=== PATIENT | female | born 1960 | race Caucasian/White ===

== ENCOUNTER 2017-10-13 23:01 | Emergency (ER) | payer OTHER ==
[~2017-10-13] VITALS: Ht 165.1 cm; Wt 45.4 kg
[~2017-10-13 23:01] MED LIST: ADVAIR 250-501 EACH INH; CALCIUM 600 +1 EACH PO; CELEXA40 MG PO; CLARITIN10 MG PO; DALIRESP500 MCG PO; DOCUSATE SODIU100 MG PO; DOXYCYCLINE 10100 MG PO; FLONASE 0.05%50 MCG NASAL; FOSAMAX 70 MG T70 MG PO; GLUCOPHAGE500 MG PO; IRON; LEVAQUIN 500 M500 M1 PO; LEVAQUIN 500 M500 M2 PO; LOPRESSOR50 PO; LORAZEPAM 0.50.5 MG PO; MECLIZINE HCL12.5 MG PO; MECLIZINE HCL25 M1; MIRALAX255 GM PO; MONTELUKAST SOD10 MG PO; NAPROSYN500 MG PO; NASACORT10.8 ML; NEBULIZER TREATMENT; OMEPRAZOLE 20 M20 MG PO; PAIN & FEVER325 MG PO; PERCOCET 5-3251 EACH PO; PREDNISONE 10 M10 M1; PREDNISONE 10 M10 M1 PO; PREDNISONE 10 M10 MG PO; PREDNISONE 20 M20 M1 PO; PROMETHAZINE HC25 M1 PO; PROMETHAZINE-D120 ML PO; SLOW FE 160MG160 MG PO; SPIRIVA INH; TESSALON PERLE100 MG PO; TOBRAMYCIN SULFA5 ML OPHTHALMIC; VERAPAMIL HCL180 M4 PO; ZOCOR 20 MG TAB20 M1 PO
[2017-10-13] MEDS ORDERED: SPIRIVA18 MCG INH (23:11)
[2017-10-13] MEDS ORDERED: MAGOX 400400 MG PO (23:12)
[2017-10-13] MEDS ORDERED: EFFEXOR XR75 MG PO (23:12)
[2017-10-13] MEDS ORDERED: NEURONTIN 300M300 M2 PO (23:12)
[2017-10-13] MEDS ORDERED: NASACORT10.8 ML NASAL (23:12)
[2017-10-13 23:47] LABS: ABSOLUTE BASOPHILS 0.1 thou/uL (0.0-0.2); ABSOLUTE EOSINOPHILS 0.1 thou/uL (0.0-0.7); ABSOLUTE LYMPHOCYTES 3.3 thou/uL (0.8-5.3); ABSOLUTE MONOCYTES 0.9 thou/uL (0.0-1.2); ABSOLUTE NEUTROPHILS 7.3 thou/uL (1.6-8.1); BASOPHILS 0.7 %; EOSINOPHILS 0.7 %; HEMATOCRIT 35.4 % (37.0-47.0); HEMOGLOBIN 11.6 gm/dL (12.0-15.0); LYMPHOCYTES 28.3 %; MCH 30.2 pg (26.0-34.0); MCHC 32.7 g/dL (28.0-37.0); MCV 92.5 fL (80.0-100.0); MPV 6.9 fl. (7.2-11.1); NUCLEATED RBCS 0 /100WBC; PLATELET COUNT* 519 thou/uL (150-400); POLYS 62.3 %; RBC 3.83 mil/uL (4.20-5.00); RDW-CV 14.5 % (10.5-14.5); WBC 11.7 thou/uL (4.0-11.0)
[2017-10-13 23:50] LABS: ANION GAP 6 mmol/L (7-16); BUN 7 mg/dL (7-18); CHLORIDE 98 mmol/L (98-107); CO2 36 mmol/L (21-32); CREATININE 0.7 mg/dL (0.6-1.3); GLUCOSE 108 mg/dL (70-99); POTASSIUM 3.3 mmol/L (3.5-5.1); SODIUM 140 mmol/L (136-145)
[2017-10-13 23:57] LABS: ALBUMIN 3.9 g/dL (3.4-5.0); ALKALINE PHOSPHATASE 78 U/L (46-116); SGOT 13 U/L (15-37); SGPT 21 U/L (30-65); TOTAL BILIRUBIN 0.3 mg/dL (<0.1-1.0); TROPONIN-I LEVEL <0.06 ng/mL (<0.06)
[2017-10-14 00:05] LABS: URINE BILIRUBIN NEGATIVE (Negative); URINE BLOOD TRACE (Negative); URINE CLARITY CLEAR; URINE COLOR YELLOW; URINE GLUCOSE-RANDOM NEGATIVE (Negative); URINE KETONES NEGATIVE (Negative); URINE LEUKOCYTES-REFLEX 1+ (Negative); URINE NITRITE-REFLEX NEGATIVE (Negative); URINE PROTEIN TRACE (Negative); URINE UROBILINOGEN 0.2 E.U./dl (0.2-1.0)
[2017-10-14 00:49] LABS: CASTS None Seen /LPF (None Seen); MUCUS 4-6 Moderate strn/LPF (None Seen); SQUAMOUS >10 Many /LPF (0-3)
[2017-10-14 00:50] LABS: URINE WBC-REFLEX 0-5 Rare /HPF (0-5)
[2017-10-14] MEDS ORDERED: BACTRIM DS TAB1 EACH PO (00:50)
[2017-10-14 00:51] LABS: CRYSTALS None Seen /LPF (None Seen); URINE RBC 0-2 Rare /HPF (0-2)
[2017-10-14 01:07] VITALS: BP 144/80
--- NOTE | 2017-10-15 09:41 | EKG ---
[place] [address] ELECTROCARDIOGRAM REPORT Name: ROZ SOMMER Room: [facility]#: [id number] Admission: 10/13/17 Attend Phys: Discharge: 10/14/17 Date of : 60 Report #: [id number] THIS REPORT FOR: //name// [facility] ED Test Date: 2017-10-13 Test Time: 23:05:55 Pat Name: ROZ SOMMER Department: Room: Gender: F Feed Research Aide: RENETTA : 1960 Requested By: Cheyanne Bautista Order Number: [id number] MD: Brett Louis Measurements Intervals [place] Rate: 134 P: 91 CT: 73 QRS: 84 QRSD: 88 T: -36 QT: 363 QTc: 542 Interpretive Statements Sinus tachycardia Borderline repolarization abnormality Prolonged QT interval Artifact in lead(s) II,III,aVR,aVL,aVF,V1,V2,V3,V4,V5,V6 Compared to ECG 10/15/2014 20:06:42 rate slowed Electronically Signed On 10-15-2017 9:41:19 CDT by Brett Louis [email or web address] <ELECTRONICALLY SIGNED> By: Brett Louis MD, FAC 10/15/17 0941 [id number] [id number] Brett Louis MD, [facility] /EPI
== END 2017-10-14 01:08 | disposition home or self-care (01) ==
LOC: M.ERS 23:01
PROVIDERS: Nurse Practitioner Family
DX: K44.9 Diaphragmatic hernia without obstruction or gangrene (principal); N30.90 Cystitis, unspecified without hematuria; R07.9 Chest pain, unspecified; J44.9 Chronic obstructive pulmonary disease, unspecified; G51.0 Bell's palsy; E78.00 Pure hypercholesterolemia, unspecified; F17.210 Nicotine dependence, cigarettes, uncomplicated; Z98.890 Other specified postprocedural states; Z88.6 Allergy status to analgesic agent; Z88.0 Allergy status to penicillin

== ENCOUNTER → 2018-01-13 | Outpatient (CLI) | payer OTHER ==
[~2018-01-13] MED LIST changes: +BACTRIM DS TAB1 EACH PO; +EFFEXOR XR75 MG PO; +MAGOX 400400 MG PO; +NASACORT10.8 ML NASAL; +NEURONTIN 300M300 M2 PO; +SPIRIVA18 MCG INH
== END ==
LOC: M.LAB 11:58
DX: R00.2 Palpitations (principal); E78.00 Pure hypercholesterolemia, unspecified; J44.9 Chronic obstructive pulmonary disease, unspecified

== ENCOUNTER 2019-03-21 13:52 | Inpatient (IN) | payer OTHER ==
[~2019-03-21] VITALS: Ht 152.4 cm; Wt 48.1 kg
[2019-03-21] VITALS (9 sets, daily range): BP systolic 121–152; BP diastolic 67–85
[~2019-03-21 13:52] MED LIST changes: +CALCIUM 600 +1 EAC2 PO; -CALCIUM 600 +1 EACH PO; +OMEPRAZOLE 20 M20 M1 PO; -OMEPRAZOLE 20 M20 MG PO
[2019-03-21] MEDS ORDERED: ASA81BEC PO (14:14)
[2019-03-21 14:45] LABS: ABSOLUTE BASOPHILS 0.1 thou/uL (0.0-0.2); ABSOLUTE EOSINOPHILS 0.1 thou/uL (0.0-0.7); ABSOLUTE LYMPHOCYTES 1.2 thou/uL (0.8-5.3); ABSOLUTE MONOCYTES 0.6 thou/uL (0.0-1.2); ABSOLUTE NEUTROPHILS 8.2 thou/uL (1.6-8.1); BASOPHILS 0.6 %; EOSINOPHILS 1.1 %; HEMATOCRIT 24.7 % (37.0-47.0); HEMOGLOBIN 7.9 gm/dL (12.0-15.0); LYMPHOCYTES 11.4 %; MCHC 31.9 g/dL (28.0-37.0); MCV 87.9 fL (80.0-100.0); MONOCYTES 6.4 %; MPV 6.4 fl. (7.2-11.1); NUCLEATED RBCS 0 /100WBC; PLATELET COUNT* 387 thou/uL (150-400); POLYS 80.5 %; RBC 2.81 mil/uL (4.20-5.00); RDW-CV 15.2 % (10.5-14.5); WBC 10.1 thou/uL (4.0-11.0)
[2019-03-21 14:52] LABS: BE 22.7 mmol/L (-2 to +3)
[2019-03-21 14:54] LABS: pH 7.271 (7.340-7.450)
[2019-03-21 14:55] LABS: PO2 246.3 mmHg (75.0-100.0)
[2019-03-21 14:55] LABS: BUN 12 mg/dL (7-18); CALCIUM 9.6 mg/dL (8.5-10.1); CHLORIDE 96 mmol/L (98-107); CREATININE 0.5 mg/dL (0.6-1.3); GLUCOSE 109 mg/dL (70-99); POTASSIUM 3.7 mmol/L (3.5-5.1); SODIUM 140 mmol/L (136-145)
[2019-03-21 14:59] LABS: APTT 27.5 Seconds (25.0-31.3); PROTIME 10.7 Seconds (9.20-11.50)
[2019-03-21 15:00] LABS: ALBUMIN 2.9 g/dL (3.4-5.0); ALKALINE PHOSPHATASE 75 U/L (46-116); MAGNESIUM 1.5 mg/dL (1.8-2.4); SGOT 7 U/L (15-37); SGPT 14 U/L (30-65); TOTAL BILIRUBIN 0.1 mg/dL (<0.1-1.0); TOTAL PROTEIN 7.6 g/dL (6.4-8.2)
[2019-03-21 15:06] LABS: CO2 > 45 mmol/L (21-32)
[2019-03-21 16:12] LABS: BE 18.5 mmol/L (-2 to +3); PO2 88.6 mmHg (75.0-100.0); pH 7.315 (7.340-7.450)
[2019-03-21 16:15] LABS: PCO2 96.5 mmHg (35.0-45.0)
[2019-03-21 16:51] LABS: URINE BILIRUBIN NEGATIVE (Negative); URINE BLOOD NEGATIVE (Negative); URINE CLARITY CLEAR; URINE COLOR YELLOW; URINE GLUCOSE-RANDOM NEGATIVE (Negative); URINE KETONES NEGATIVE (Negative); URINE LEUKOCYTES-REFLEX NEGATIVE (Negative); URINE NITRITE-REFLEX NEGATIVE (Negative); URINE PROTEIN TRACE (Negative); URINE SPECIFIC GRAVITY 1.025 (1.005-1.030); URINE UROBILINOGEN 0.2 E.U./dl (0.2-1.0)
--- NOTE | 2019-03-21 20:18 | NUR ---
PT RECEIVED FROM ER AT 1730, A&O X4. ST ON THE MONITOR, SATTING LOW 90s IN 3L NC. GETS UP TO THE BSC, STB. HAD HER BM. ATE HER DINNER. BIPAP ORDERS RECEIVED. FAMILY AT THE BEDSIDE. ADMISSION PROCESS COMPLETED.
[2019-03-21 20:53] LABS: INFLUENZA A ANTIGEN Negative (Negative); INFLUENZA B ANTIGEN Negative (Negative)
[2019-03-22] VITALS (13 sets, daily range): BP systolic 116–144; BP diastolic 68–87
[2019-03-22 04:30] LABS: HEMATOCRIT 27.5 % (37.0-47.0); HEMOGLOBIN 8.7 gm/dL (12.0-15.0); MCH 27.7 pg (26.0-34.0); MCHC 31.6 g/dL (28.0-37.0); MCV 87.5 fL (80.0-100.0); MPV 6.7 fl. (7.2-11.1); RBC 3.14 mil/uL (4.20-5.00); RDW-CV 15.1 % (10.5-14.5); WBC 7.5 thou/uL (4.0-11.0)
--- NOTE | 2019-03-22 04:39 | NUR ---
ASSUMED CARE AT 1910H, ON NC AT 1.5LPM THEN INCREASED TO 2LPM AND TOLERATED. NO DISTRESS NOTED. RECIEVED PT WITH SINUS TACHYCARDIA BUT AFTER VERAPAMIL PILL GIVEN, PT'S HR DECREASED TO 90'S-105'S. NO COMPLAINS, PT SLEPT INTERMITENTLY. CONTINUE MONITORING AND TOWARD GOALS.
[2019-03-22 04:48] LABS: CALCIUM 9.2 mg/dL (8.5-10.1); CREATININE 0.6 mg/dL (0.6-1.3); MAGNESIUM 1.5 mg/dL (1.8-2.4); POTASSIUM 4.3 mmol/L (3.5-5.1); TOTAL BILIRUBIN 0.2 mg/dL (<0.1-1.0); TOTAL PROTEIN 7.8 g/dL (6.4-8.2)
[2019-03-22 05:58] LABS: BE 13.8 mmol/L (-2 to +3); PO2 75.7 mmHg (75.0-100.0); pH 7.443 (7.340-7.450)
[2019-03-22 05:59] LABS: PCO2 59.5 mmHg (35.0-45.0)
[2019-03-22 09:52] LABS: CALCIUM 9.2 mg/dL (8.5-10.1); CREATININE 0.9 mg/dL (0.6-1.3); POTASSIUM 3.9 mmol/L (3.5-5.1)
--- NOTE | 2019-03-22 14:32 | EKG ---
[place] [address] ELECTROCARDIOGRAM REPORT Name: ROZ SOMMER Room: [address] ADM IN .R.#: [id number] Admission: 03/21/19 Attend Phys: Chemo Alonzo, Discharge: Date of : 60 Report #: [id number] THIS REPORT FOR: //name// [facility] ED Test Date: 2019-03-21 Test Time: 15:06:31 Pat Name: ROZ SOMMER Department: Room: [facility] Gender: F Access Control Specialist: JOE : 1960 Requested By: Danielle Rojas Order Number: [id number] MD: Eulogio Calhoun Measurements Intervals [place] Rate: 129 P: 90 ND: 117 QRS: 90 QRSD: 82 T: 50 QT: 303 QTc: 444 Interpretive Statements Sinus tachycardia Borderline right axis deviation Compared to ECG 10/13/2017 23:05:55 Prolonged QT interval no longer present Electronically Signed On 03-22-2019 14:32:36 WHITE KID BUFFER by Eulogio Calhoun [email or web address] <ELECTRONICALLY SIGNED> By: Eulogio Calhoun MD, FACC 03/22/19 1432 1506 1506 Eulogio Calhoun MD, [facility] /EPI
--- NOTE | 2019-03-22 19:00 | NUR ---
Patient transfered to Tele room 209 in stable condition. Report given.
--- NOTE | 2019-03-22 20:00 | NUR ---
RECEIVED REPORT AND ASSUMED CARE OF PT, ASSESSMENT COMPLETED. PT SOA AT REST, O2 ON AT 3L/NC, HOB ELEVATED. TELEMETRY ON SHOWING ST. WILL CONT TO MONITOR AND ASSIST NEEDED.
[2019-03-23] VITALS (7 sets, daily range): BP systolic 123–146; BP diastolic 64–86
--- NOTE | 2019-03-23 06:58 | NUR ---
SLEPT WELL TONIGHT. ASSESSMENT UNCHANGED. GAIT STEADY TO AND FROM BR WITH OXYGEN ON. SOA WITH ANY ACTIVITY. TELEMETRY SHOWING ST. HS GOALS OF REST AND SAFETY ACHIEVED. HOURLY ROUNDING OBSERVED.
[2019-03-23 08:38] LABS: BE 13.9 mmol/L (-2 to +3); PO2 85.1 mmHg (75.0-100.0); pH 7.441 (7.340-7.450)
[2019-03-23 08:41] LABS: PCO2 60.1 mmHg (35.0-45.0)
--- NOTE | 2019-03-23 13:47 | 2DMMODE ---
[place] [address] 2 D/M-MODE ECHOCARDIOGRAM Name: ROZ SOMMER Room: [address] IN [facility]#: [id number] Admission: 03/21/19 Attend Phys: Chemo Alegria Discharge: Date of : 60 Date of Service: 03/23/19 1347 Report #: [id number] THIS REPORT FOR: //name// APPROVED REPORT Study performed: 03/23/2019 11:05:23 EXAM: Comprehensive 2D, Doppler, and color-flow Echocardiogram Patient Location: In-Patient Room #: [facility] Status: routine BSA: 1.42 HR: 105 bpm BP: 136/64 mmHg Rhythm: NSR Other Information Study Quality: Good Indications Pulmonary Hypertension 2D Dimensions IVSd: 8.56 (7-11mm) LVOT Diam: 20.21 (18-24mm) LVDd: 45.51 mm PWd: 7.98 (7-11mm) Ascending Ao: 25.07 (22-36mm) LVDs: 30.56 (25-40mm) Aortic Root: 29.29 mm Volumes Left Atrial Volume (Systole) LA ESV Index: 31.60 mL/m2 Aortic Valve AoV Peak Rogelio.: 1.70 m/s AO Peak Gr.: 11.59 mmHg LVOT Max P.57 mmHg AO Mean Gr.: 6.38 mmHg LVOT Mean P.08 mmHg LVOT Max V: 1.07 m/s AO V2 VTI: 30.55 cm LVOT Mean V: 0.65 m/s FLACO (VTI): 2.04 cm2 LVOT V1 VTI: 19.41 cm Mitral Valve E/A Ratio: 0.72 MV Decel. Time: 117.33 ms MV E Max Rogelio.: 0.85 m/[place] [address] 2 D/M-MODE ECHOCARDIOGRAM Name: ROZ SOMMER Room: [address] IN [facility]#: [id number] Admission: 03/21/19 Attend Phys: Chemo Alegria Discharge: Date of : 60 Date of Service: 03/23/19 1347 Report #: [id number] MV PHT: 34.03 ms MVA (PHT): 6.47 cm2 TDI E/Lateral E': 6.54 E/Medial E': 7.73 Medial E' Rogelio.: 0.11 m/s Lateral E' Rogelio.: 0.13 m/s Pulmonary Valve PV Peak Rogelio.: 1.04 m/s PV Peak Gr.: 4.34 mmHg Tricuspid Valve RAP Estimate: 5.00 mmHg TR Peak Gr.: 27.11 mmHg RVSP: 32.00 mmHg PA Pressure: 32.00 mmHg Left Ventricle The left ventricle is normal size. There is normal LV segmental wall motion. There is normal left ventricular wall thickness. Left ventricular systolic function is normal. The left ventricular ejection fraction is within the normal range. LVEF is 60-65%. Grade I - abnormal relaxation pattern. Right Ventricle The right ventricle is normal size. The right ventricular systolic function is normal. Atria The left atrium size is normal. The right atrium size is normal. Aortic Valve The aortic valve is normal in structure. No aortic regurgitation is present. There is no aortic valvular stenosis. Mitral Valve The mitral valve is normal in structure. Trace mitral regurgitation. No evidence of mitral valve stenosis. Tricuspid Valve The tricuspid valve is normal in structure. Mild tricuspid regurgitation. Mild pulmonary hypertension. Pulmonic Valve The pulmonary valve is normal in structure. There is no pulmon[place] [address] 2 D/M-MODE ECHOCARDIOGRAM Name: ROZ SOMMER Room: [address] IN [facility]#: [id number] Admission: 03/21/19 Attend Phys: Chemo Alegria Discharge: Date of : 60 Date of Service: 03/23/19 1347 Report #: [id number] Great Vessels The aortic root is normal in size. IVC is normal in size and collapses >50% with inspiration. Pericardium Trace pericardial effusion. <Conclusion> The left ventricle is normal size. There is normal left ventricular wall thickness. Left ventricular systolic function is normal. The left ventricular ejection fraction is within the normal range. LVEF is 60-65%. Grade I - abnormal relaxation pattern. The right ventricle is normal size. The left atrium size is normal. The aortic valve is normal in structure. The mitral valve is normal in structure. The tricuspid valve is normal in structure. Mild tricuspid regurgitation. Mild pulmonary hypertension. IVC is normal in size and collapses >50% with inspiration. Trace pericardial effusion. There is normal LV segmental wall motion. <ELECTRONICALLY SIGNED> By: Mitchell Jurado MD, FACC 03/23/19 1347 46 134 Mitchell Jurado MD, FACC /INF
--- NOTE | 2019-03-23 13:53 | NUR ---
Pt is A&O. Resides at home with her son, dtr and grandkids. Independent. Pt wears home o2 continuous through [employer]. Pt inquired into if she would qualify for an Inogen, RIKKI spoke with Nelly from [employer], faxed facesheet, Nelly to check to see if Pt qualifies. Pt has a walker and cane at home, but states that she doesn't currently use either. Hx of HH. Hx of [place] [facility]. No hx of SNF. Goal is home at id. Following.
--- NOTE | 2019-03-23 18:58 | NUR ---
PT VSS, PT SINUS TACH ON TELE, A&OX4, PT ON NC@3L BASELINE, PT HAS EXTREME SOA ON EXERSION. HOURLY ROUNDING PERFORMED, POSSESSIONS AND CALL LIGHT WITHIN REACH, PT PLANS ON DC 03/24/19
[2019-03-24] VITALS: BP 113/63
[2019-03-24 04:00] VITALS: BP 103/54
[2019-03-24 05:51] LABS: HEMOGLOBIN 8.2 gm/dL (12.0-15.0); MCH 27.3 pg (26.0-34.0); MCHC 31.5 g/dL (28.0-37.0); MCV 86.5 fL (80.0-100.0); MPV 6.6 fl. (7.2-11.1); RBC 3.01 mil/uL (4.20-5.00); RDW-CV 15.5 % (10.5-14.5); WBC 13.6 thou/uL (4.0-11.0)
[2019-03-24 06:11] LABS: CALCIUM 9.3 mg/dL (8.5-10.1); CREATININE 0.7 mg/dL (0.6-1.3); POTASSIUM 4.6 mmol/L (3.5-5.1)
--- NOTE | 2019-03-24 06:55 | NUR ---
PT IS A+O X 4. UP STANDBY- AMBULATES WITH STEADY GAIT TO BATHROOM WITH EXTENSION TUBING ON. NO CONCERNS. CALL LIGHT IN REACH. HOURLY ROUNDING FOR SAFETY.
[2019-03-24 08:42] VITALS: BP 135/77
--- NOTE | 2019-03-24 09:07 | CON ---
[address] [address] CONSULTATION Name: ROSROZ Sutton Room: [address] IN .R.#: [id number] Admission: 03/21/19 Attend Phys: Chemo Alonzo, Discharge: Date of : 60 Report #: [id number] THIS REPORT FOR: //name// CC: Dr. Kevin Alonzo REQUESTING PHYSICIAN: Chemo Alonzo MD REASON FOR CONSULTATION: Acute on chronic respiratory failure, COPD exacerbation. DISCUSSION: The patient is a 59-year-old woman who has a history of very severe COPD. She has been O2, though not steroid dependent. She does have intermittent followup in our office. I currently do not have any of those office notes. She has been having more trouble with her breathing for the last several days. She has had increased cough, her secretions have been fairly clear, but have been thick. She was getting more short of breath, was evaluated in the Emergency Department. She was brought in by EMS. I had increased her FiO2. O2 saturations were relatively low. Was placed on BiPAP as blood gases revealed significant hypercapnia with a pCO2 of greater than 100. Followup blood gases did show improvement, but continued with marked hypercapnia. After admission yesterday, she was able to intermittently come off the BiPAP of p.o. intake. However, she declined sleeping with the BiPAP most of the night. She is on nasal cannula this morning and is feeling much better. She continues to smoke cigarettes. She is vague as to the amount that she smokes. She also uses electronic cigarettes along with marijuana. She is vague as to the amount. At home, she is on the O2 continuously. She does have a nebulizer at home, but has not used it in years. She notes it is stored some place. She does not have a rescue inhaler. Baseline, she does do Advair and Spiriva daily. She notes she has been compliant with that. Her pulmonary history is remarkable for the very severe COPD, though I do not have recent records on her, it does appear that studies done greater than 5-6 years ago were consistent with very severe airways obstruction with an FEV1 of only 0.8 and vital capacity of 2 liters. She did have a pneumothorax and required a right thoracotomy back in 2012, complicated by an infection. Did have a prolonged time on the ventilator at that time, had a tracheostomy tube in place. She cannot recall many of those details, they are not available. She was hospitalized at [facility]. She believes the trach was in for several months. She believes she has had the pneumonia vaccines. [place] [address] CONSULTATION Name: SOMMERROZ Herman Room: [address] IN ..#: [id number] Admission: 03/21/19 Attend Phys: Chemo Alonzo, Discharge: Date of : 60 Report #: [id number] this season. There were no other smokers at home. She is chronically hoarse. Secretions generally are clear. She notes over the last several years, she intermittently may cough up small amount of blood. Has seen ENT in the past, it is not clear when. Apparently because of the hoarseness, they had her do some voice rest. Given her some medications, unknown type. She did not go back for followup. She has ongoing issues with GERD. She has a known hiatal hernia as well. PAST MEDICAL HISTORY: Also remarkable for her severe COPD, prior right thoracotomy for pneumothorax, tracheostomy placement, has had prior MRSA infections, hysterectomy, inguinal hernia repair, Knutson's palsy and hysterectomy. HOME MEDICATIONS: Have been Spiriva HandiHaler daily; Advair unknown strength twice a day, in the past, it was 500/50 one puff b.i.d., medication sheet lists 250/50; lorazepam; Effexor; gabapentin; aspirin; verapamil; calcium with vitamin D; Flonase nasal spray, possibly also Nasacort as well; omeprazole twice a day; metformin; Fosamax weekly. SOCIAL HISTORY: Smoker and electronic cigarette user as noted. Uses marijuana. FAMILY HISTORY: Positive for COPD in multiple family members. REVIEW OF SYSTEMS: Complete ROS was done. Note positives above. Some years ago, she did have a significant weight loss. Has been fairly stable over the last year. Intermittent difficulty swallowing. Chronic hoarseness has been present for several years. Scant intermittent non-massive hemoptysis is noted. No chest pain, no palpitations. No syncopal episodes. Denies any recent issues with nausea and vomiting. No lower extremity edema. No recent skin rashes. No recent fevers, chills or sweats. PHYSICAL EXAMINATION: GENERAL: She is seen in the Intensive Care Unit. She is resting in bed. O2 running via nasal cannula. She is alert, cooperative, speaking in full sentences. She is in no acute distress. HEENT: Head is normocephalic and atraumatic. She looks chronically ill. Mucous membranes a little dry. NECK: Negative for adenopathy and no JVD. Neck muscles well developed. She has a healed tracheostomy scar. HEART: Regular rate, though mildly tachycardic. Grade 1/6 systolic murmur. LUNGS: Reveal breath sounds to be diminished with a prolonged expiratory phase. She has expiratory wheezes heard bilaterally. She has a well-healed right thoracotomy scar. ABDOMEN: Soft. No hepatosplenomegaly is noted. She notes she has some generalized discomfort throughout. No focal tenderness. No guarding. EXTREMITIES: Thin with no edema noted. No clubbing. [place] [address] CONSULTATION Name: ROZ SOMMER Room: [address] IN [facility]#: [id number] Admission: 03/21/19 Attend Phys: Chemo Alonzo, Discharge: Date of : 60 Report #: [id number] wasting noted. LABORATORY AND X-RAY FINDINGS: Her chemistry this morning, her bicarb is 42, down from greater than 45; BUN 12; creatinine 0.6. Calcium 9.2. Transaminases normal. Albumin 3.0. Lactic acid normal. White blood cell count 7500, hemoglobin 8.7, hematocrit of 27.5, platelets 388,000. Influenza screen was negative. Arterial blood gases when she first arrived in the ED yesterday, she had a pH 7.27, a pCO2 121, pO2 of 246. Her bicarb was 54 with a saturation of 98%, that was on 3 liters. Her most recent blood gases done earlier this morning, pH of 7.44, pCO2 of 60, pO2 of 76, bicarb of 40, saturation 93% that was on 2 liters. Blood cultures are pending. A chest x-ray was reviewed. A portable study done. Does show no definite infiltrates. She does have some chronic scarring noted. Large hiatal hernia. IMPRESSION: 1. Acute on chronic respiratory failure. Hypoxic and hypercapnia, clinically improved this morning. 2. Ongoing tobacco abuse. Also, utilizing marijuana and electronic cigarettes. 3. Prior history of respiratory failure requiring long-term ventilation and tracheostomy placement. 4. Anemia. 5. Non-massive intermittent hemoptysis. Source not clear. 6. Hoarseness, it has been chronic sometime. Apparently seeing ENT in the past, so it is not clear whether the may have visualized in her upper airway. 7. Intermittent dysphagia. Could be related to her gastroesophageal reflux disease. 8. Gastroesophageal reflux disease. 9. 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 RECOMMENDATIONS: 1. Okay to transfer out of ICU. 2. Continue bronchodilator regimen. 3. Complete smoking cessation. No cigarettes, marijuana or electronic cigarettes. 4. We would suggest having ENT evaluated once discharged. Those services are not available here in the hospital. Given her long smoking history, would be cramer to have her upper airway reevaluated. 5. Very poor candidate for bronchoscopy, etc. Given the severity of her lung disease, she would not tolerate sedation well. <ELECTRONICALLY SIGNED> By: Ace Mckee MD 03/24/1907 0854 0943Joanne Ellsworth MD /nt
--- NOTE | 2019-03-24 10:21 | NUR ---
ASSUMED CARE OF PT AROUND 0730 THIS AM. REFER TO ASSESSMENT. PT REPORTS FEELING MUCH BETTER THIS AM. ON HOME DOSE OXYGEN OF 3L/NC. TOLERATING DIET. NO OTHER CONCERNS AT THIS TIME. CLWR. WCTM.
[2019-03-24 12:00] VITALS: BP 115/62
[2019-03-24] MEDS ORDERED: MEDROL DOSPAK21 TA1 PO (12:11)
--- NOTE | 2019-03-24 12:20 | NUR ---
Cm spoke with Nelly from [employer], Pt should qualify for an Inogen, Nelly to contact Pt to discuss.
[2019-03-24 12:54] VITALS: BP 115/62
[2019-03-24 13:42] VITALS: BP 115/62
--- NOTE | 2019-03-24 13:57 | NUR ---
Inogen to be delivered to Pt's home today
== END 2019-03-24 13:40 | disposition home or self-care (01) | DRG 189 ==
LOC: M.ERS 13:52 → M.2W 15:16 → M.ICU 15:16 → M.TBA-ER 15:16 → M.ICU 17:31 → M.2W 03-22 18:35
PROVIDERS: Family Medicine; Internal Medicine Pulmonary Disease; Personal Emergency Response Attendant; ADMIT Family Medicine
PROC: 5A09357 Assistance with Respiratory Ventilation, Less than 24 Consecutive Hours, Continuous Positive Airway Pressure (ICD-10-PCS; principal; 2019-03-21)
PROC: 5A09357 Assistance with Respiratory Ventilation, Less than 24 Consecutive Hours, Continuous Positive Airway Pressure (ICD-10-PCS; 2019-03-22)
DX: J96.21 Acute and chronic respiratory failure with hypoxia (principal); E46 Unspecified protein-calorie malnutrition; B71.0 Hymenolepiasis; J96.22 Acute and chronic respiratory failure with hypercapnia; F17.210 Nicotine dependence, cigarettes, uncomplicated; K21.9 Gastro-esophageal reflux disease without esophagitis; G51.0 Bell's palsy; D64.9 Anemia, unspecified; R13.10 Dysphagia, unspecified; R49.0 Dysphonia; J43.9 Emphysema, unspecified; E78.00 Pure hypercholesterolemia, unspecified; F41.9 Anxiety disorder, unspecified; I27.20 Pulmonary hypertension, unspecified; E78.5 Hyperlipidemia, unspecified; R00.0 Tachycardia, unspecified; E83.42 Hypomagnesemia; Z71.6 Tobacco abuse counseling; Z93.0 Tracheostomy status; Z90.710 Acquired absence of both cervix and uterus; Z79.82 Long term (current) use of aspirin; Z79.899 Other long term (current) drug therapy; Z83.6 Family history of other diseases of the respiratory system; Z99.81 Dependence on supplemental oxygen; Z79.84 Long term (current) use of oral hypoglycemic drugs; Z88.6 Allergy status to analgesic agent; Z88.0 Allergy status to penicillin; Z68.20 Body mass index [BMI] 20.0-20.9, adult

== ENCOUNTER 2019-06-30 08:40 | Inpatient (IN) | payer OTHER ==
[~2019-06-30] VITALS: Ht 152.4 cm; Wt 52.0 kg
[~2019-06-30 08:40] MED LIST changes: +ASA81BEC PO; +MEDROL DOSPAK21 TA1 PO
[2019-06-30 08:45] VITALS: BP 127/79
[2019-06-30] MEDS ORDERED: PREDNISONE 10 M10 MG PO (08:55)
[2019-06-30] MEDS ORDERED: WIXELA 250-501 EACH INH (08:56)
[2019-06-30 09:18] LABS: PCO2 120.7 mmHg (35.0-45.0); PO2 158.9 mmHg (75.0-100.0); pH 7.292 (7.340-7.450)
[2019-06-30 09:51] LABS: ABSOLUTE BASOPHILS 0.1 thou/uL (0.0-0.2); ABSOLUTE LYMPHOCYTES 0.7 thou/uL (0.8-5.3); ABSOLUTE NEUTROPHILS 6.5 thou/uL (1.6-8.1); BASOPHILS 1.2 %; HEMATOCRIT 28.3 % (37.0-47.0); HEMOGLOBIN 8.7 gm/dL (12.0-15.0); MCH 25.4 pg (26.0-34.0); MCHC 30.8 g/dL (28.0-37.0); MCV 82.4 fL (80.0-100.0); MONOCYTES 11.6 %; MPV 6.7 fl. (7.2-11.1); NUCLEATED RBCS 0 /100WBC; PLATELET COUNT* 319 thou/uL (150-400); POLYS 78.2 %; RBC 3.43 mil/uL (4.20-5.00); WBC 8.3 thou/uL (4.0-11.0)
[2019-06-30 10:25] LABS: ALBUMIN 3.4 g/dL (3.4-5.0); ALKALINE PHOSPHATASE 92 U/L (46-116); BUN 18 mg/dL (7-18); CREATININE 0.6 mg/dL (0.6-1.3); GLUCOSE 115 mg/dL (70-99); MAGNESIUM 1.7 mg/dL (1.8-2.4); SGPT 13 U/L (30-65); TOTAL BILIRUBIN 0.3 mg/dL (<0.1-1.0); TOTAL PROTEIN 7.4 g/dL (6.4-8.2)
[2019-06-30 10:34] LABS: CHLORIDE 92 mmol/L (98-107); POTASSIUM 4.7 mmol/L (3.5-5.1); SODIUM 141 mmol/L (136-145)
[2019-06-30 10:39] LABS: CO2 > 45 mmol/L (21-32)
[2019-06-30 10:45] LABS: SGOT 12 U/L (15-37)
[2019-06-30 11:36] LABS: URINE CLARITY CLEAR; URINE COLOR YELLOW; URINE GLUCOSE-RANDOM NEGATIVE (Negative); URINE KETONES 2+ (Negative); URINE PROTEIN 2+ (Negative); URINE SPECIFIC GRAVITY >= 1.030 (1.005-1.030)
[2019-06-30 11:37] LABS: URINE BILIRUBIN 1+ (Negative); URINE BLOOD NEGATIVE (Negative); URINE LEUKOCYTES-REFLEX NEGATIVE (Negative); URINE NITRITE-REFLEX NEGATIVE (Negative); URINE UROBILINOGEN 0.2 E.U./dl (0.2-1.0)
[2019-06-30 11:38] LABS: ICTOTEST (BILI CONFIRMATORY) Negative (Negative)
[2019-06-30 11:56] LABS: BACTERIA-REFLEX 1-9 Few /HPF (None Seen); SQUAMOUS 0-3 Few /LPF (0-3); URINE RBC 0-2 Rare /HPF (0-2); URINE WBC-REFLEX 0-5 Rare /HPF (0-5)
[2019-06-30 11:57] LABS: CASTS None Seen /LPF (None Seen); CRYSTALS None Seen /LPF (None Seen); MUCUS >6 Heavy strn/LPF (None Seen)
[2019-06-30 13:43] LABS: BE 15.6 mmol/L (-2 to +3); pH 7.304 (7.340-7.450)
[2019-06-30 13:46] LABS: PCO2 91.7 mmHg (35.0-45.0); PO2 140.8 mmHg (75.0-100.0)
[2019-06-30 18:57] VITALS: BP 138/72
[2019-06-30 18:59] VITALS: BP 126/56
[2019-06-30 20:39] VITALS: BP 132/68
[2019-07-01] VITALS (10 sets, daily range): BP systolic 91–145; BP diastolic 44–83
[2019-07-01 06:10] LABS: HEMOGLOBIN 7.7 gm/dL (12.0-15.0); MCH 25.5 pg (26.0-34.0); MCV 82.5 fL (80.0-100.0); MPV 6.8 fl. (7.2-11.1); RBC 3.03 mil/uL (4.20-5.00); RDW-CV 17.4 % (10.5-14.5); WBC 5.2 thou/uL (4.0-11.0)
[2019-07-01 06:26] LABS: ANION GAP < 0 mmol/L (7-16); BUN 20 mg/dL (7-18); CHLORIDE 96 mmol/L (98-107); CREATININE 0.8 mg/dL (0.6-1.3); GLUCOSE 175 mg/dL (70-99); MAGNESIUM 1.6 mg/dL (1.8-2.4); POTASSIUM 4.7 mmol/L (3.5-5.1); SODIUM 140 mmol/L (136-145)
[2019-07-01 06:48] LABS: CO2 45 mmol/L (21-32)
--- NOTE | 2019-07-01 08:25 | NUR ---
PT ADMITTED TO ROOM 226 JUST BEFORE PROFESSOR OF BIBLICAL STUDIES BEGAN; VSS, A+OX4, DROWSY, 7LO2 HFNC AND BIPAP PRN/ AT NOC. SHE HAS DENIED THE NEED FOR PAIN MEDICATION DURING PROFESSOR OF BIBLICAL STUDIES. PT WORE BIPAP OVERNIGHT FOR APPROXIMATELY 3 HRS; SHE DOES NOT TOLERATE IT WELL. CLEAR LIQUID DIET MAINTAINED. CO2 HAS BEEN HIGH; LAB RESULTS PAGED TO SENSITOMETRIST PULMONOLOGY MD.
[2019-07-01 09:15] LABS: BE 20.8 mmol/L (-2 to +3)
[2019-07-01 09:18] LABS: PCO2 127.2 mmHg (35.0-45.0); PO2 206.5 mmHg (75.0-100.0); pH 7.226 (7.340-7.450)
--- NOTE | 2019-07-01 10:29 | NUR ---
ASSUMED CARE OF PT THIS AM AROUND 0715- EARLY CHILDHOOD ASSISTANT INPLACE ORDERED, TRACING SR/ST- UPON ASSESSMENT PT NOTED TO BE RESTING IN BED- PT A&O X4, FORGETFULL- CONT OF B/B- AX1 WITH TRANSFERS- DIMINISHED LUNG SOUNDS, DYSPNEA NOTED ON EXERTION- VSS, O2 SAT 100% ON 6L VIA HFNC- ABG RESULTED THIS AM WITH RESULTS CALLED TO - O2 DECREASED PER RT R/T TO 3L VIA NC PER ABG RESULTS- ABD SOFT/ROUND/NON-TENDER, BS X4 QUADS- LAST BM REPORTED 06/30/19- IV NOTED TO LEFT AC INTACT AND SL- GOOD PO INTAKE NOTED ON CLEAR LIQUIDS THIS AM- BS MONITORED ORDERED WITH SSI PRESCRIBED-MG NOTED TO BE 1.6 THIS AM AND IS CURRENLTY BEING REPLACED PER PROTOCOL- CALL LIGHT AND PERSONAL BELONGINGS WITH IN REACH- ALL NEEDS MET AT THIS TIME-WCTM
--- NOTE | 2019-07-01 11:30 | NUR ---
ATTEMPTED TO MEET WITH PT, WAS SLEEPING. PT WAS HOPSITALIZED IN NOV, WLIVES WITH SON/DTR AND GRANDKIDS, USES HOME O2 THRU [employer] AND HAS HX OF [facility]. WILL TRY TO MEET WITH PT LATER TODAY TO DISCUSS HOME SITUATION AND DC PLAN
[2019-07-01 13:21] LABS: BE 13.3 mmol/L (-2 to +3); PO2 97.8 mmHg (75.0-100.0)
[2019-07-01 13:23] LABS: PCO2 94.9 mmHg (35.0-45.0); pH 7.265 (7.340-7.450)
--- NOTE | 2019-07-01 13:57 | EKG ---
[place] [address] ELECTROCARDIOGRAM REPORT Name: ROZ SOMMER Room: [address] IN [facility].#: [id number] Admission: 06/30/19 Attend Phys: Ines Valverde, Discharge: Date of : 60 Date of Service: 06/30/19 1042 Report #: [id number] THIS REPORT FOR: cc: Kevin Medrano MD, Matthew W. MD Holkins, John M. MD [facility] ~ THIS REPORT FOR: //name// [facility] ED Test Date: 2019-06-30 Test Time: 10:42:31 Pat Name: ROZ SOMMER Department: Room: [facility] Gender: F Yard Jockey: [facility] : 1960 Requested By: Danielle Rojas Order Number: [id number] MD: Mitchell Jurado Measurements Intervals [place] Rate: 139 P: 77 WV: 63 QRS: 81 QRSD: 76 T: 38 QT: 266 QTc: 405 Interpretive Statements Sinus tachycardia Atrial premature complex Borderline T wave abnormalities Compared to ECG 03/21/2019 15:06:31 Atrial premature complex(es) now present T-wave abnormality now present Electronically Signed On 06-30-2019 12:54:41 SENIOR FINANCE MANAGER by Mitchell Jurado [email or web address] <ELECTRONICALLY SIGNED> By: Mitchell Jurado MD, [facility] 06/30/19 1254 1042 1042 Mitchell Jurado MD, [facility] /EPI
[2019-07-01 18:07] LABS: BE 17.5 mmol/L (-2 to +3); PO2 88.9 mmHg (75.0-100.0); pH 7.426 (7.340-7.450)
[2019-07-01 18:09] LABS: PCO2 68.7 mmHg (35.0-45.0)
--- NOTE | 2019-07-01 20:28 | NUR ---
UNABLE TO DOWNLOAD VITAL SIGNS OFF [employer] MONITOR. HARD COPY PALCED ON CHART.
[2019-07-02] VITALS (24 sets, daily range): BP systolic 119–152; BP diastolic 46–86
[2019-07-02 04:10] LABS: HEMATOCRIT 23.6 % (37.0-47.0); HEMOGLOBIN 7.7 gm/dL (12.0-15.0); MCH 26.5 pg (26.0-34.0); MCHC 32.6 g/dL (28.0-37.0); MCV 81.1 fL (80.0-100.0); MPV 7.1 fl. (7.2-11.1); RBC 2.91 mil/uL (4.20-5.00); RDW-CV 17.5 % (10.5-14.5); WBC 8.4 thou/uL (4.0-11.0)
[2019-07-02 04:28] LABS: ALBUMIN 2.6 g/dL (3.4-5.0); CALCIUM 7.6 mg/dL (8.5-10.1); CREATININE 0.6 mg/dL (0.6-1.3); MAGNESIUM 1.8 mg/dL (1.8-2.4); POTASSIUM 4.3 mmol/L (3.5-5.1); TOTAL BILIRUBIN 0.1 mg/dL (<0.1-1.0)
[2019-07-02 04:44] LABS: BE 13.1 mmol/L (-2 to +3); pH 7.482 (7.340-7.450)
[2019-07-02 04:45] LABS: PCO2 52.2 mmHg (35.0-45.0)
--- NOTE | 2019-07-02 07:24 | NUR ---
RECEIVED REPORT AND ASSUMED CARE. ASSESSMENT COMPLETED CHARTED. POSITION CHANGED EVERY TWO HOURS, HEELS OFF LOADED. ROUNDING COMPLETED AND ALL NEEDS MET.
[2019-07-02 09:20] LABS: BE 9.7 mmol/L (-2 to +3); PO2 95.9 mmHg (75.0-100.0); pH 7.321 (7.340-7.450)
[2019-07-02 09:23] LABS: PCO2 74.3 mmHg (35.0-45.0)
[2019-07-02 10:43] LABS: BE 14.4 mmol/L (-2 to +3); pH 7.315 (7.340-7.450)
[2019-07-02 10:47] LABS: PCO2 86.6 mmHg (35.0-45.0)
--- NOTE | 2019-07-02 11:25 | NUR ---
PATIENT EXTUBATED TO BIPAP. PT REQUESTED TUBE OUT. FAMILY AT BEDSIDE.
--- NOTE | 2019-07-02 13:00 | NUR ---
INT ROUNDS: PT EXTUBATED, ON BIPAP BUT VERY DROWSY. NOT ABLE TO HAVE CONVERSATION WITH HER. NO FAMILY IN ROOM
[2019-07-03] VITALS (22 sets, daily range): BP systolic 105–157; BP diastolic 65–90
[2019-07-03 04:18] LABS: HEMATOCRIT 25.3 % (37.0-47.0); HEMOGLOBIN 8.1 gm/dL (12.0-15.0); MCH 25.8 pg (26.0-34.0); MCV 80.5 fL (80.0-100.0); MPV 6.7 fl. (7.2-11.1); RBC 3.15 mil/uL (4.20-5.00); RDW-CV 17.4 % (10.5-14.5); WBC 10.3 thou/uL (4.0-11.0)
[2019-07-03 04:38] LABS: ALBUMIN 2.8 g/dL (3.4-5.0); CALCIUM 7.8 mg/dL (8.5-10.1); CREATININE 0.5 mg/dL (0.6-1.3); POTASSIUM 3.7 mmol/L (3.5-5.1); TOTAL BILIRUBIN 0.2 mg/dL (<0.1-1.0); TOTAL PROTEIN 6.3 g/dL (6.4-8.2)
--- NOTE | 2019-07-03 06:42 | NUR ---
Pt pleasant, alert and oriented though forgetful at times. Pt wore BIPAP from 2145 to 0500 with a couple of breaks; once at 2250 to have Jello and pudding, and from 0320 to 0350 after requesting new mask for BIPAP. VSS. On 3L O2 per NC when not on BIPAP; O2 sats upper 90s. Requesting that physician will order Miralax for her today. Will continue to monitor.
--- NOTE | 2019-07-03 08:00 | NUR ---
PT IS A/O X4, INTERNET ECOMMERCE SPECIALIST IN PLACE, TRACING SR-ST.PT REMAINS ON 3L O2 NC OR BIPAP WHILE SLEEPING.DOCTOR NOTIFIED OF INCREASED HEART RATE WITH NEW ORDERS RECEIVED.NO C/O PAIN.IV ANTIBIOTICS GIVEN.PT WORKED WITH OT AND GOT UP TO CHAIR.PT DOWNGRADED TO TELE STATUS.CALL LIGHT AND FALL PRECAUTIONS IN PLACE.WILL CONTINUE TO MONITOR FOR DURATION OF SHIFT.
--- NOTE | 2019-07-03 10:15 | NUR ---
INT ROUNDS: MET WITH PT AND DTR KUSH. PT LIVES WITH SON/DIL LINDSEY. SHE IS ABLE TO DO HER OWN ADLS. USES O2 AT 3L, NEB AND TRILOGY AT NIGHT AND WITH NAPS. CONFIMRED EQUIPMENT WITH [employer]. PT HAS BEEN TO [facility] IN PAST DENIES HAVING HH. PT DOES NOT HAVE DPOA, DISCUSSED WITH HER AND GAVE INFO TO HER AND DTR. ENCOURAGED HER TO DISCUSS WITH HER CHILDREN. PT WAS UNSURE ON SAME INTERVENTIONS BUT WILL DISCUSS. PLANS TO RETURN HOME AT ME. ISREAL FOLLOW
--- NOTE | 2019-07-03 18:06 | NUR ---
PT RESTING IN BED WITH CALL LIGHT AND FALL PRECAUTIONS IN PLACE.VSS.PT REMAINS ON 3L O2 NC.WILL CONTINUE TO MONITOR FOR DURATION OF SHIFT.
[2019-07-04] VITALS (15 sets, daily range): BP systolic 115–156; BP diastolic 65–84
[2019-07-04 04:45] LABS: HEMATOCRIT 24.2 % (37.0-47.0); HEMOGLOBIN 7.9 gm/dL (12.0-15.0); MCH 26.3 pg (26.0-34.0); MCHC 32.6 g/dL (28.0-37.0); MCV 80.6 fL (80.0-100.0); MPV 6.9 fl. (7.2-11.1); RDW-CV 17.3 % (10.5-14.5); WBC 10.7 thou/uL (4.0-11.0)
[2019-07-04 05:05] LABS: ALBUMIN 2.7 g/dL (3.4-5.0); CALCIUM 8.7 mg/dL (8.5-10.1); CREATININE 0.6 mg/dL (0.6-1.3); POTASSIUM 3.6 mmol/L (3.5-5.1); TOTAL BILIRUBIN 0.2 mg/dL (<0.1-1.0); TOTAL PROTEIN 6.1 g/dL (6.4-8.2)
--- NOTE | 2019-07-04 07:34 | NUR ---
Pt awake and alert. On BIPAP from 2144 to 439. Reports mask uncomfortable despite readjustments. States she was unable to sleep overnight. Otherwise no complaints. VSS. Will continue to monitor.
--- NOTE | 2019-07-04 10:52 | NUR ---
0730 ASSUMED CARE OF PATIENT. PLEASE SEE DOCUMENTED ASSESSMENT. PT IS TELE STATUS IN THE ICU. PT IS ON 3LPM NASAL CANNULA OXYGEN AT THIS TIME
--- NOTE | 2019-07-04 12:48 | NUR ---
REPORT TO ALBERTO. PATIENT TO MOVE TO ROOM 225
--- NOTE | 2019-07-04 13:23 | NUR ---
transferred to room 225 with all records and belongings
--- NOTE | 2019-07-04 15:26 | NUR ---
RECEIVED REPORT FROM ICU AT 1240. GET SITUATED TO ROOM. I AGREE WITH COOPER TRUCK JUMPER/CHARTING. WILL CONTINUE TO MONITOR.
[2019-07-05] VITALS: BP 129/70
[2019-07-05 04:00] VITALS: BP 114/71
--- NOTE | 2019-07-05 04:44 | NUR ---
ASSUMED PT CARE AT APPROX 1930. PT IS AWAKE AND ORIENTED X4. VSS ON 3L OF O2/NC-NO DESATURATIONS NOTED. PT DENIES PAIN/DISCOMFORT. ASSESSMENT DONE AND CHARTED. PT IS ABLE TO SLEEP MOST OF THE NIGHT. HOURLY ROUNDING DONE FOR PT SAFETY. PT IS ABLE TO REPOSITION SELF. HIGH FALL PRECAUTIONS IN PLACE. CALL LIGHT WITHIN REACH.
[2019-07-05 06:12] LABS: HEMOGLOBIN 7.4 gm/dL (12.0-15.0); MPV 7.1 fl. (7.2-11.1); NUCLEATED RBCS 0 /100WBC
[2019-07-05 06:13] LABS: ABSOLUTE BASOPHILS 0.1 thou/uL (0.0-0.2); ABSOLUTE MONOCYTES 0.9 thou/uL (0.0-1.2); ABSOLUTE NEUTROPHILS 5.3 thou/uL (1.6-8.1); BASOPHILS 0.9 %; EOSINOPHILS 0.1 %; HEMATOCRIT 23.7 % (37.0-47.0); LYMPHOCYTES 23.9 %; MCH 25.6 pg (26.0-34.0); MCHC 31.4 g/dL (28.0-37.0); MCV 81.7 fL (80.0-100.0); MONOCYTES 11.3 %; PLATELET COUNT* 246 thou/uL (150-400); POLYS 63.8 %; RDW-CV 17.4 % (10.5-14.5); WBC 8.4 thou/uL (4.0-11.0)
[2019-07-05 06:23] LABS: ALBUMIN 2.5 g/dL (3.4-5.0); ALKALINE PHOSPHATASE 53 U/L (46-116); BUN 15 mg/dL (7-18); CALCIUM 8.4 mg/dL (8.5-10.1); CHLORIDE 102 mmol/L (98-107); CREATININE 0.3 mg/dL (0.6-1.3); GLUCOSE 86 mg/dL (70-99); POTASSIUM 3.4 mmol/L (3.5-5.1); SGOT 11 U/L (15-37); SGPT 12 U/L (30-65); SODIUM 147 mmol/L (136-145); TOTAL BILIRUBIN 0.2 mg/dL (<0.1-1.0); TOTAL PROTEIN 5.6 g/dL (6.4-8.2)
[2019-07-05 06:32] LABS: CO2 > 45 mmol/L (21-32)
[2019-07-05 08:00] VITALS: BP 119/69
[2019-07-05 11:02] LABS: % SATURATION 7 % (20-39); IRON 24 ug/dL (50-175)
--- NOTE | 2019-07-05 12:51 | NUR ---
ASSUMED PT CARE AT 0800, AOX4, UP SBA, O2 SAT MID 80'S THIS AM. RESOLVED WITH O2 SUPPLEMENT. PT DENIES PAIN. PT ACCU CHECK. PT HAD BM TODAY. LUNG SOUND DIMINISHED. PT IV INTACT, PT ANTIBIOTICS GIVEN ORDERED. LOVETT CATH DRAINING WELL.AM ASSESSMENT CHARTED. HOURLY ROUNDING, CALL LIGHT WITHIN REACH, WILL CONTINUE TO MONITOR.
[2019-07-05 13:50] VITALS: BP 129/72
[2019-07-05 17:59] VITALS: BP 118/68
[2019-07-05 20:00] VITALS: BP 112/71
[2019-07-06] VITALS (7 sets, daily range): BP systolic 108–150; BP diastolic 60–85
--- NOTE | 2019-07-06 04:13 | NUR ---
ASSUMED PT CARE AT APPROX 1930. PT IS AWAKE AND ORIENTED X4. VSS ON 3L OF O2/NC-NO DESATURATIONS NOTED. PT DENIES PAIN/DISCOMFORT. ASSESSMENT DONE AND CHARTED. PT USED THE TRILOGY MOST OF THE NIGHT. HOURLY ROUNDING DONE FOR PT SAFETY. PT IS ABLE TO REPOSITION SELF. FALL PRECAUTIONS IN PLACE. CALL LIGHT WITHIN REACH. WILL CONTINUE TO MONITOR PT.
[2019-07-06 07:45] LABS: ABSOLUTE BASOPHILS 0.1 thou/uL (0.0-0.2); ABSOLUTE LYMPHOCYTES 2.5 thou/uL (0.8-5.3)
[2019-07-06 07:48] LABS: ABSOLUTE MONOCYTES 1.1 thou/uL (0.0-1.2); ABSOLUTE NEUTROPHILS 6.4 thou/uL (1.6-8.1); BASOPHILS 0.6 %; EOSINOPHILS 0.2 %; HEMATOCRIT 21.9 % (37.0-47.0); LYMPHOCYTES 25.1 %; MCH 25.7 pg (26.0-34.0); MCHC 31.6 g/dL (28.0-37.0); MCV 81.3 fL (80.0-100.0); MONOCYTES 10.7 %; MPV 6.9 fl. (7.2-11.1); NUCLEATED RBCS 0 /100WBC; PLATELET COUNT* 265 thou/uL (150-400); POLYS 63.4 %; RBC 2.69 mil/uL (4.20-5.00); RDW-CV 17.5 % (10.5-14.5)
[2019-07-06 07:54] LABS: HEMOGLOBIN 6.9 gm/dL (12.0-15.0)
[2019-07-06 08:15] LABS: ALBUMIN 2.4 g/dL (3.4-5.0); ALKALINE PHOSPHATASE 51 U/L (46-116); BUN 17 mg/dL (7-18); CALCIUM 8.3 mg/dL (8.5-10.1); CHLORIDE 100 mmol/L (98-107); CREATININE 0.5 mg/dL (0.6-1.3); GLUCOSE 89 mg/dL (70-99); POTASSIUM 3.7 mmol/L (3.5-5.1); SGOT 11 U/L (15-37); SGPT 16 U/L (30-65); SODIUM 145 mmol/L (136-145); TOTAL BILIRUBIN 0.2 mg/dL (<0.1-1.0); TOTAL PROTEIN 5.5 g/dL (6.4-8.2)
[2019-07-06 08:21] LABS: CO2 > 45 mmol/L (21-32)
--- NOTE | 2019-07-06 12:22 | NUR ---
ASSUMED CARE OF PT AT 0730. PT RESTING IN BED WAITING FOR BREAKFAST. A&0X4, SLOW TO RESPOND. DENIES ANY PAIN OR SHORTNESS OF BREATH AT THIS TIME. TRACING ST ON THE BROOM WORKER. RATE IN THE 110'S. PT ON 3L NC SAT UPPER 90'S. LOVETT TO DEPENDENT DRAINAGE. PT UP WITH 1 ASSIST TO BSC. CRITICAL HGB THIS AM-6.9. DR NOBLES NOTIFIED. ORDERS RECEIVED TO TRANSFUSE 1 UNIT PRBC. BLOOD TRANSFUSING AT THIS TIME. COLLECTION TECHNICIANTESHA PLACED MIDLINE TO RIGHT UPPER ARM. PERIPHERAL IV INFILTRATED AND DISCONTINUED. PT GOAL FOR TODAY IS HGB TO RISE ABOVE 8 POST TRANSFUSION, PAIN MGMT, INCREASE ACTIVITY AND TITRATE OXYGEN. PULMONARY HERE TO SEE PT. NO NEW ORDERS RECEIVED AT THIS TIME. AM ASSESSMENT CHARTED. MEDICATIONS PER JUL. PT REPOSITIONS SELF. HOURLY ROUNDING OBSERVED. BED IN LOW POSITION. BED ALARM IN PLACE. FALL PRECAUTIONS IN PLACE. CALL LIGHT WITHIN REACH. WILL CONTINUE PLAN OF CARE.
[2019-07-06 15:48] LABS: HEMATOCRIT 27.9 % (37.0-47.0)
[2019-07-06 15:50] LABS: HEMOGLOBIN 9.1 gm/dL (12.0-15.0)
--- NOTE | 2019-07-06 17:08 | NUR ---
NO ACUTE CHANGES THROUGHOUT SHIFT. REFER TO CHARTING. PT PROGRESSING TOWARDS GOALS. PT TOLERATED BLOOD TRANSFUSION WITH NO COMPLICATIONS. HGB POST TRANSFUSION- 9.1. CONTINUES TO BE ON 3L NC SAT UPPER 90'S. PT SLEEPY THIS AFTERNOON- RESTED IN BED. CONTINUES TO TRACE ST ON THE ACCESS CONTROL SPECIALIST-RATE IN THE 110'S. LOVETT TO DEPENDENT DRAINAGE. PT AND OT IN PLACE. PULMONARY DECREASED STEROIDS AND SIGNED OFF. MEDICATIONS PER JUL. PT REPOSITIONS SELF. HOURLY ROUNDING OBSERVED. BED IN LOW POSITION. CALL LIGHT WITHIN REACH. WILL CONTINUE PLAN OF CARE.
--- NOTE | 2019-07-06 17:13 | NUR ---
I have reviewed the documentation by OMAIRA GARCIA from 07/06/19 to 07/06/19 and I concur with it. ELIF RECINOS
[2019-07-07] VITALS (7 sets, daily range): BP systolic 123–146; BP diastolic 69–89
[2019-07-07 04:54] LABS: HEMATOCRIT 27.6 % (37.0-47.0); MCH 27.2 pg (26.0-34.0); MCHC 32.7 g/dL (28.0-37.0); MCV 83.3 fL (80.0-100.0); MPV 6.7 fl. (7.2-11.1); RBC 3.32 mil/uL (4.20-5.00); RDW-CV 17.8 % (10.5-14.5); WBC 11.1 thou/uL (4.0-11.0)
--- NOTE | 2019-07-07 05:24 | NUR ---
PATIENT HAS SLEPT WELL THROUGHOUT THE NIGHT. VSS ON 3L 02 VIA NASAL CANNULA. LUNG SOUNDS ARE COARSE AND WHEEZY. PATIENT IS HAVING PRODUCTIVE COUGH. MEDICATIONS GIVEN ORDERED AND CHARTED. ASSESSMENT CHARTED. RIGHT MIDLINE-SL. LOVETT TO DEPENDENT DRAINAGE WITH ADEQUATE YELLOW URINE OUTPUT. PATIENT INSTRUCTED TO USE CALL LIGHT WHEN NEEDING ASSISTANCE. HOURLY ROUNDS MADE. WILL CONTINUE WITH PLAN OF CARE AND NURSING TO MONITOR.
[2019-07-07 05:42] LABS: BUN 19 mg/dL (7-18); CALCIUM 8.4 mg/dL (8.5-10.1); CHLORIDE 99 mmol/L (98-107); CREATININE 0.5 mg/dL (0.6-1.3); GLUCOSE 118 mg/dL (70-99); MAGNESIUM 1.7 mg/dL (1.8-2.4); POTASSIUM 4.4 mmol/L (3.5-5.1); SODIUM 144 mmol/L (136-145)
[2019-07-07 05:50] LABS: CO2 > 45 mmol/L (21-32)
--- NOTE | 2019-07-07 09:16 | NUR ---
ASSUMED CARE OF PT AT 0730. PT RESTING IN BED WAITING FOR BREAKFAST. A&0X4, DENIES ANY PAIN OR SHORTNESS OF BREATH AT THIS TIME. TRACING SR/ST ON THE CLINICAL INFORMATICS PHYSICIAN. ON 3L NC SAT 96%, COARSE, WHEEZES NOTED. LOVETT TO DEPENDENR DRAINAGE. PT UP WITH 1 ASSIST BSC. PT TO HAVE CXR TODAY, PT TRANSITIONED TO ORAL ANTIBIOTICS. PT GOAL FOR TODAY IS INCREASE ACTIVITY, WORK WITH PT AND OT AND REPLACE MAGNESIUM PER ELECTROLYTE PROTOCOL. AM ASSESSMENT CHARTED. MEDICATIONS PER JUL. PT REPOSITIONS SELF WITH REMINDERS. HOURLY ROUNDING OBSERVED. BED IN LOW POSITION. CALL LIGHT WITHIN REACH. WILL CONTINUE PLAN OF CARE.
--- NOTE | 2019-07-07 12:33 | NUR ---
Nutrition: Pt admitted with COPD exac. Seen for LOS. Pt stated good appetite, no questions about CHO controlled diet. Wt: 119#. BG running high 118-298, on prednisone. Alb 2.4, prealb 16.9. Pt had no questions/concerns. Consider Mild risk. GOALS: continue good meal intake.
--- NOTE | 2019-07-07 16:25 | NUR ---
SPOKE WITH PT AND SON/BETTIE OVER THE PHONE. PT ADMITS TO BEING WEAK, IS AGREEABLE TO CONSIDER SNF. DISCUSSED LIST AND SON WOULD PREFER CLOSE TO HOME BUT NOT A PREFERENCE. LIST OBTAINED FROM INSURANCE WEBSITE, CALL TO [facility] AND [facility], BOTH CALLED THE INSURANCE AND ARE NOT IN NETWORK. CALL TO [facility] AND FAXED REFERRAL. AWAITING CALL BACK. CALL TO [facility] [place], THEY ARE BEHAVIORAL ONLY. CALL TO [facility], THEY WERE UNAVAILABLE. CHECKING ON HH OPTION ALSO.
--- NOTE | 2019-07-07 16:48 | NUR ---
NO ACUTE CHANGES THROUGHOUT SHIFT. REFER TO CHARTING. PT WORKED WITH PT AND OT TODAY-TOLERATED FAIR- HEART RATE NOTED TO BE IN THE 120'S-130'S WITH ACTIVITY. MAGNESIUM BEING REPLACED PER ELECTROLYTE PROTOCOL. PT TOOK A SHOWER WITH NURSING AID ASSIST. PT HAD REPEAT CXR TODAY. REFER TO RESULTS. LOVETT DISCONTINUED THIS AFTERNOON. PT VOIDING WELL WITH NO DIFFICULTIES. PT TO HAVE LABS IN AM. POSSIBLE DISCHARGE TO SNF IN 1-2 DAYS DEPENDING ON STRENGTH PER DR NOBLES. CONTINUES TO BE ON 3L NC SAT 96%. CONTINUES TO TRACE ST ON THE AIR GUN OPERATOR. UP WITH 1 ASSIST TO BSC. MEDICATIONS PER JUL. PT REPOSITIONS SELF WITH REMINDERS. HOURLY ROUNDING OBSERVED. BED IN LOW POSITION. CALL LIGHT WITHIN REACH. WILL CONTINUE PLAN OF CARE.
--- NOTE | 2019-07-07 17:09 | NUR ---
FAXED HOME HEALTH REFERRAL TO [facility]. CONFIRMED WITH BEREKET/KENNEDY THAT [facility] ACCEPTED INSURANCE BUT NEEDED TO REVIEW PLAN AND REFERRAL. WILL FOLLOW UP TOMORROW, 07/08/19 TO SEE IF APPROVED FOR SERVICES IF NEEDED. [phone]; [phone].
[2019-07-08 04:00] VITALS: BP 134/80
--- NOTE | 2019-07-08 05:27 | NUR ---
PATIENT REMAINS ON 3L O2 NC, WHICH IS PATIENT'S BASELINE AT HOME. PATIENT CONTINUES TO HAVE LOOSE COUGH. ENCOURAGED TO EXPECTORATE SPUTUM INTO TISSUE. PATIENT UP TO BEDSIDE COMMODE WITH MINIMAL ASSIST, NO PROBLEMS URINATING. PATIENT DENIES PAIN AND DISCOMFORT. CALL LIGHT WITHIN REACH
[2019-07-08 06:12] LABS: HEMATOCRIT 27.8 % (37.0-47.0); HEMOGLOBIN 9.2 gm/dL (12.0-15.0); MCH 27.5 pg (26.0-34.0); MCHC 32.9 g/dL (28.0-37.0); MCV 83.6 fL (80.0-100.0); MPV 6.4 fl. (7.2-11.1); RBC 3.33 mil/uL (4.20-5.00); WBC 10.3 thou/uL (4.0-11.0)
[2019-07-08 06:29] LABS: BUN 12 mg/dL (7-18); CALCIUM 8.3 mg/dL (8.5-10.1); CHLORIDE 100 mmol/L (98-107); CREATININE 0.5 mg/dL (0.6-1.3); GLUCOSE 94 mg/dL (70-99); POTASSIUM 4.3 mmol/L (3.5-5.1); SODIUM 145 mmol/L (136-145)
[2019-07-08 06:36] LABS: CO2 > 45 mmol/L (21-32)
[2019-07-08 08:00] VITALS: BP 108/67
--- NOTE | 2019-07-08 08:52 | NUR ---
ASSUMED CARE OF PT AT 0730. PT SITTING AT EDGE OF BED WAITING FOR BREAKFAST. A&0X4, DENIES ANY PAIN OR SHORTNESS OF BREATH AT THIS TIME. TRACING ST ON THE DIRECTOR GAME. RATE IN THE 110'S. ON 3L NC SAT 96%. PT HAS LOOSE COUGH. PT UP WITH 1 ASSIST AND BSC. PT HAD BOWEL MOVEMENT TODAY. HGB STABLE THIS AM 9.2. PT GOAL FOR TODAY IS WORK WITH PHYSICAL AND OCCUPATIONAL THERAPY AND DISCHARGE TO SNF. AM ASSESSMENT CHARTED. MEDICATIONS PER JUL. PT REPOSITIONS SELF WITH REMINDERS. HOURLY ROUNDING OBSERVED. BED IN LOW POSITION. CALL LIGHT WITHIN REACH. WILL CONTINUE PLAN OF CARE.
--- NOTE | 2019-07-08 11:25 | NUR ---
MET WITH PT AND SPOKE WITH SON/BETTIE OVER THE PHONE. UNABLE TO FIND SNF IN PTS INSURANCE NETWORK. DISCUSSED HH AND PALLATIVE CARE WITH PT AND SON, IN AGREEMENT. OPTIONS DISCUSSED AND CHOSE [facility]. CALLED AND FAXED DC ORDERS TO [facility]OTH [facility] AND [facility]. EXPLAINED TO PT AND SON THAT PT'S INSURANCE IS VERY LIMITING WITH HER OPTIONS FOR SNF AND HH. SUGGESTED SHE INVESTIGATE OPTIONS AND CALL HER INSURANCE TO DISCUSS. PT TO RETURN HOME WITH FAMILY TODAY.
[2019-07-08] MEDS ORDERED: TYLENOL325 MG PO (11:31)
[2019-07-08] MEDS ORDERED: TOPROL XL25 MG PO (11:36)
[2019-07-08] MEDS ORDERED: ALBUTEROL2.5 MG/31 PO (11:41)
[2019-07-08 12:00] VITALS: BP 123/70
--- NOTE | 2019-07-08 15:45 | NUR ---
DISCHARGE ORDERS RECEIVED. DISCHARGE INSTRUCTIONS, CARE NOTES, SCRIPTS AND FOLLOW UP APPTS GIVEN TO PT. PT COMMUNICATES UNDERSTANDING OF DISCHARGE TEACHING. MIDLINE REMOVED SUCCESSFULLY. PRESSURE DRESSING PLACED. IMPERSONATOR CHARACTER REMOVED. PT DISCHARGED WITH ALL BELONGINGS AND PAPERWORK VIA WHEELCHAIR WITH [employer] TO DAUGHTER'S OWN PERSONAL VEHICLE.
== END 2019-07-08 15:46 | disposition home health service (06) | DRG 208 ==
LOC: M.ERS 08:40 → M.2W 11:27 → M.TBA-ER 11:27 → M.2W 19:02 → M.ICU 07-01 14:24 → M.2W 07-04 13:27
PROVIDERS: Internal Medicine; Internal Medicine Pulmonary Disease; Personal Emergency Response Attendant; ADMIT Internal Medicine
PROC: 5A1935Z Respiratory Ventilation, Less than 24 Consecutive Hours (ICD-10-PCS; principal; 2019-07-01)
PROC: 0BH17EZ Insertion of Endotracheal Airway into Trachea, Via Natural or Artificial Opening (ICD-10-PCS; principal; 2019-07-01)
PROC: 5A09357 Assistance with Respiratory Ventilation, Less than 24 Consecutive Hours, Continuous Positive Airway Pressure (ICD-10-PCS; 2019-07-02)
PROC: 5A09357 Assistance with Respiratory Ventilation, Less than 24 Consecutive Hours, Continuous Positive Airway Pressure (ICD-10-PCS; 2019-07-03)
PROC: 5A09357 Assistance with Respiratory Ventilation, Less than 24 Consecutive Hours, Continuous Positive Airway Pressure (ICD-10-PCS; 2019-07-04)
PROC: 5A09357 Assistance with Respiratory Ventilation, Less than 24 Consecutive Hours, Continuous Positive Airway Pressure (ICD-10-PCS; 2019-07-05)
PROC: 30233N1 Transfusion of Nonautologous Red Blood Cells into Peripheral Vein, Percutaneous Approach (ICD-10-PCS; 2019-07-06)
PROC: 05HY33Z Insertion of Infusion Device into Upper Vein, Percutaneous Approach (ICD-10-PCS; 2019-07-06)
PROC: 5A09357 Assistance with Respiratory Ventilation, Less than 24 Consecutive Hours, Continuous Positive Airway Pressure (ICD-10-PCS; 2019-07-07)
DX: J96.22 Acute and chronic respiratory failure with hypercapnia (principal); E43 Unspecified severe protein-calorie malnutrition; J96.21 Acute and chronic respiratory failure with hypoxia; D64.9 Anemia, unspecified; G51.0 Bell's palsy; F12.90 Cannabis use, unspecified, uncomplicated; F17.210 Nicotine dependence, cigarettes, uncomplicated; E78.5 Hyperlipidemia, unspecified; F41.9 Anxiety disorder, unspecified; J43.9 Emphysema, unspecified; R73.03 Prediabetes; E78.00 Pure hypercholesterolemia, unspecified; R00.0 Tachycardia, unspecified; Z90.710 Acquired absence of both cervix and uterus; Z68.22 Body mass index [BMI] 22.0-22.9, adult; Z79.84 Long term (current) use of oral hypoglycemic drugs; Z79.899 Other long term (current) drug therapy; Z79.82 Long term (current) use of aspirin; Z88.0 Allergy status to penicillin; Z88.8 Allergy status to other drugs, medicaments and biological substances; Z99.81 Dependence on supplemental oxygen

== ENCOUNTER 2019-10-10 18:49 | Inpatient (IN) | payer OTHER ==
[~2019-10-10] VITALS: Ht 152.4 cm; Wt 48.8 kg
[~2019-10-10 18:49] MED LIST changes: +ALBUTEROL2.5 MG/31 PO; +TOPROL XL25 MG PO; +TYLENOL325 MG PO; +WIXELA 250-501 EACH INH
[2019-10-10 18:54] VITALS: BP 150/91
[2019-10-10 19:32] LABS: ABSOLUTE BASOPHILS 0.1 thou/uL (0.0-0.2); ABSOLUTE EOSINOPHILS 0.1 thou/uL (0.0-0.7); ABSOLUTE LYMPHOCYTES 1.6 thou/uL (0.8-5.3); ABSOLUTE MONOCYTES 0.9 thou/uL (0.0-1.2); ABSOLUTE NEUTROPHILS 11.3 thou/uL (1.6-8.1); BASOPHILS 0.4 %; EOSINOPHILS 0.5 %; HEMATOCRIT 33.9 % (37.0-47.0); HEMOGLOBIN 10.9 gm/dL (12.0-15.0); LYMPHOCYTES 11.3 %; MCH 28.5 pg (26.0-34.0); MCHC 32.3 g/dL (28.0-37.0); MCV 88.5 fL (80.0-100.0); MONOCYTES 6.3 %; MPV 6.7 fl. (7.2-11.1); NUCLEATED RBCS 0 /100WBC; PLATELET COUNT* 490 thou/uL (150-400); POLYS 81.5 %; RBC 3.83 mil/uL (4.20-5.00); RDW-CV 15.8 % (10.5-14.5); WBC 13.9 thou/uL (4.0-11.0)
[2019-10-10 19:40] LABS: BUN 11 mg/dL (7-18); CALCIUM 9.1 mg/dL (8.5-10.1); CHLORIDE 94 mmol/L (98-107); CREATININE 0.7 mg/dL (0.6-1.3); GLUCOSE 105 mg/dL (70-99); SODIUM 139 mmol/L (136-145)
[2019-10-10 19:44] LABS: ALBUMIN 3.6 g/dL (3.4-5.0); ALKALINE PHOSPHATASE 76 U/L (46-116); CO2 > 45 mmol/L (21-32); LIPASE 99 U/L (73-393); SGOT 16 U/L (15-37); SGPT 16 U/L (30-65); TOTAL BILIRUBIN 0.2 mg/dL (<0.1-1.0); TOTAL PROTEIN 7.5 g/dL (6.4-8.2)
[2019-10-10 20:08] LABS: APTT 27.3 Seconds (25.0-31.3); PROTIME 10.5 Seconds (9.20-11.50)
[2019-10-10 20:50] LABS: URINE BILIRUBIN NEGATIVE (Negative); URINE BLOOD NEGATIVE (Negative); URINE CLARITY CLEAR; URINE COLOR YELLOW; URINE GLUCOSE-RANDOM NEGATIVE (Negative); URINE KETONES NEGATIVE (Negative); URINE LEUKOCYTES-REFLEX NEGATIVE (Negative); URINE NITRITE-REFLEX NEGATIVE (Negative); URINE PROTEIN NEGATIVE (Negative); URINE SPECIFIC GRAVITY <= 1.005 (1.005-1.030); URINE UROBILINOGEN 0.2 E.U./dl (0.2-1.0)
[2019-10-10 23:10] VITALS: BP 153/86
[2019-10-10 23:40] VITALS: BP 141/74
[2019-10-11] VITALS (12 sets, daily range): BP systolic 109–136; BP diastolic 59–73
--- NOTE | 2019-10-11 05:07 | NUR ---
RECEIVED PT FROM ED AT APPROX 2330. PT IS AWAKE AND ORIENTED X4. PT IS TRACING ST ON THE ACCOUNTING CLERKS SUPERVISOR. ADMISSION ASSESSMENT DONE AND CHARTED. PT DENIES ABDOMINAL PAIN/DISCOMFORT. NO BOWEL MOVEMENT OF THIS TIME. PT IS ADVISED ON THE USE OF CALL LIGHT AND ON ROOM SET UP. FALL PRECAUTIONS IN PLACE. HOURLY ROUNDING DONE FOR PT SAFETY.
[2019-10-11 11:51] LABS: BE 15.7 mmol/L (-2 to +3); PO2 116.7 mmHg (75.0-100.0)
[2019-10-11 11:52] LABS: ABSOLUTE LYMPHOCYTES 1.2 thou/uL (0.8-5.3); ABSOLUTE MONOCYTES 0.6 thou/uL (0.0-1.2); ABSOLUTE NEUTROPHILS 7.7 thou/uL (1.6-8.1); BASOPHILS 0.5 %; EOSINOPHILS 0.2 %; HEMATOCRIT 27.2 % (37.0-47.0); LYMPHOCYTES 12.6 %; MCH 28.6 pg (26.0-34.0); MCHC 31.7 g/dL (28.0-37.0); MCV 90.2 fL (80.0-100.0); MONOCYTES 6.5 %; NUCLEATED RBCS 0 /100WBC; POLYS 80.2 %; RBC 3.01 mil/uL (4.20-5.00); RDW-CV 15.5 % (10.5-14.5); WBC 9.6 thou/uL (4.0-11.0)
[2019-10-11 11:54] LABS: pH 7.182 (7.340-7.450)
[2019-10-11 11:56] LABS: HEMOGLOBIN 8.6 gm/dL (12.0-15.0); PLATELET COUNT* 350 thou/uL (150-400)
[2019-10-11 12:23] LABS: BUN 10 mg/dL (7-18); CALCIUM 8.1 mg/dL (8.5-10.1); CHLORIDE 103 mmol/L (98-107); CREATININE 0.6 mg/dL (0.6-1.3); GLUCOSE 146 mg/dL (70-99); POTASSIUM 4.3 mmol/L (3.5-5.1); SODIUM 144 mmol/L (136-145)
[2019-10-11 12:27] LABS: CO2 > 45 mmol/L (21-32)
[2019-10-11 12:28] LABS: ALBUMIN 2.9 g/dL (3.4-5.0); ALKALINE PHOSPHATASE 66 U/L (46-116); SGOT 10 U/L (15-37); SGPT 15 U/L (30-65); TOTAL BILIRUBIN 0.2 mg/dL (<0.1-1.0); TOTAL PROTEIN 6.2 g/dL (6.4-8.2)
[2019-10-11 14:11] LABS: BE 18.2 mmol/L (-2 to +3)
[2019-10-11 14:14] LABS: PCO2 140.2 mmHg (35.0-45.0); PO2 137.2 mmHg (75.0-100.0); pH 7.177 (7.340-7.450)
--- NOTE | 2019-10-11 15:39 | NUR ---
PT DROWSY BUT ORIENTED, NC@3L MOVED TO BIPAP DUE TO SEVERE ABGs. ST ON TELE, COPD PT WITH PREVIOUS EXACERBATIONS DUE TO SMOKING. UP WITH ONE TO COMMODE, CLEAR LIQUID DIET AND BOWEL PREP FOR PLANNED EGD TO DISCOVER CAUSE OF TARRY STOOLS. PT HAS BLACK RIGHT EYE FROM A FALL AT HOME. HOURLY ROUNDING PERFORMED, POSSESSIONS AND CALL LIGHT WITHIN REACH. TRANSFERRING PATIENT TO ICU FOR CLOSER MONITORING. REPORT GIVEN TO LOUIS LOWERY IN ICU.
[2019-10-11 15:55] LABS: BE 16.5 mmol/L (-2 to +3); PO2 67.5 mmHg (75.0-100.0)
[2019-10-11 15:59] LABS: PCO2 97.3 mmHg (35.0-45.0); pH 7.291 (7.340-7.450)
[2019-10-11 17:21] LABS: BE 12.8 mmol/L (-2 to +3); PO2 78.5 mmHg (75.0-100.0); pH 7.311 (7.340-7.450)
--- NOTE | 2019-10-11 19:26 | NUR ---
PT A&O x4. ECG SHOWS ST. ABG IMPROVING, BIPAP SETTINGS CHANGED PER ORDERS. UP WITH STB. VOIDING PER BSC. LAXATIVES ADMINISTERED ORDERED. ZOFRAN GIVEN ONCE FOR NAUSEA.
[2019-10-12] VITALS (34 sets, daily range): BP systolic 92–147; BP diastolic 50–80
[2019-10-12 03:36] LABS: HEMATOCRIT 25.3 % (37.0-47.0); HEMOGLOBIN 8.1 gm/dL (12.0-15.0); MCH 28.8 pg (26.0-34.0); MCV 89.9 fL (80.0-100.0); MPV 6.9 fl. (7.2-11.1); NUCLEATED RBCS 0 /100WBC; PLATELET COUNT* 358 thou/uL (150-400); RBC 2.81 mil/uL (4.20-5.00); RDW-CV 15.4 % (10.5-14.5); WBC 6.4 thou/uL (4.0-11.0)
[2019-10-12 03:45] LABS: BUN 11 mg/dL (7-18); CALCIUM 8.6 mg/dL (8.5-10.1); CHLORIDE 101 mmol/L (98-107); CREATININE 0.7 mg/dL (0.6-1.3); GLUCOSE 148 mg/dL (70-99); POTASSIUM 4.9 mmol/L (3.5-5.1); SODIUM 142 mmol/L (136-145)
[2019-10-12 03:46] LABS: CO2 > 45 mmol/L (21-32)
[2019-10-12 04:28] LABS: BE 15.6 mmol/L (-2 to +3); PO2 108.2 mmHg (75.0-100.0)
[2019-10-12 04:55] LABS: PCO2 94.5 mmHg (35.0-45.0); pH 7.291 (7.340-7.450)
[2019-10-12 05:53] LABS: ABSOLUTE BASOPHILS 0.1 thou/uL (0.0-0.2); ABSOLUTE LYMPHOCYTES 0.3 thou/uL (0.8-5.3); ABSOLUTE NEUTROPHILS 6.1 thou/uL (1.6-8.1); METAMYELOCYTES 1 %; PLATELET ESTIMATE ADEQUATE
[2019-10-12 05:54] LABS: HYPOCHROMASIA 1+
--- NOTE | 2019-10-12 07:05 | NUR ---
ASSESSMENTS CHARTED. PATIENT WAS TAKEN OFF BIPAP FOR ABOUT 4 HOURS EARLY IN SHIFT. TOLERATED NC WELL. PATIENT PLACED BACK ON BIPAP AROUND 2300 FOR SLEEP. PATIENT WAS DIFFICULT TO AROUSE AFTER 0200. MORNING BMP SHOWED CO2 STILL CRITICALLY HIGH, ABG DRAWN TO CONFIRM RESULTS. CRITICAL RESULTS CALLED TO DR. KUHN. ORDERS RECIEVED. PATIENT HAS BEEN EAISER TO AROUSE SINCE BIPAP SETTING CHANGE. NO BM THIS SHIFT DESPITE BOWEL PREP. PATIENT NOT PRODUCING MUCH URINE THIS SHIFT.
--- NOTE | 2019-10-12 19:49 | NUR ---
I ASSUMED CARE OF THE PATIENT AT 0700. SHE IS ALERT AND ORIENTED X4 AND IS UP WITH STAND BY ASSIST TO THE BEDSIDE COMMODE. BED IS IN THE LOW LOCKED POSITION AND CALL LIGHT IS IN REACH. HOURLY ROUNDING IS COMPLETED AND PATIENT NEEDS ARE MET. PAIN IS DENIED. BIPAP SETTINGS WERE ADJUSTED AND PATIENT HAS BEEN NOTIFIED THAT SHE MAY NEED TO BE INTUBATED TO HAVE HER EGD/COLONOSCOPY. SHE IS USING THE BEDSIDE COMMODE FOR HER BOWEL PREP. SHE WILL BE NPO AT MIDNIGHT AND IS TOLERATING CLEARS NOW. WILL CONTINUE TO MONITOR.
[2019-10-13] VITALS (11 sets, daily range): BP systolic 128–166; BP diastolic 67–93
[2019-10-13 03:55] LABS: ABSOLUTE LYMPHOCYTES 0.5 thou/uL (0.8-5.3); ABSOLUTE MONOCYTES 0.1 thou/uL (0.0-1.2); ABSOLUTE NEUTROPHILS 8.7 thou/uL (1.6-8.1); BASOPHILS 0.4 %; HEMATOCRIT 23.8 % (37.0-47.0); HEMOGLOBIN 7.6 gm/dL (12.0-15.0); LYMPHOCYTES 4.9 %; MCH 28.2 pg (26.0-34.0); MCHC 31.8 g/dL (28.0-37.0); MCV 88.9 fL (80.0-100.0); MONOCYTES 0.7 %; MPV 7.1 fl. (7.2-11.1); NUCLEATED RBCS 0 /100WBC; PLATELET COUNT* 339 thou/uL (150-400); RBC 2.68 mil/uL (4.20-5.00); RDW-CV 15.7 % (10.5-14.5); WBC 9.3 thou/uL (4.0-11.0)
[2019-10-13 04:22] LABS: ALBUMIN 2.8 g/dL (3.4-5.0); ALKALINE PHOSPHATASE 54 U/L (46-116); ANION GAP < 0 mmol/L (7-16); BUN 11 mg/dL (7-18); CALCIUM 8.4 mg/dL (8.5-10.1); CHLORIDE 101 mmol/L (98-107); CO2 44 mmol/L (21-32); CREATININE 0.7 mg/dL (0.6-1.3); GLUCOSE 201 mg/dL (70-99); MAGNESIUM 1.7 mg/dL (1.8-2.4); POTASSIUM 4.4 mmol/L (3.5-5.1); SGOT 9 U/L (15-37); SGPT 13 U/L (30-65); SODIUM 142 mmol/L (136-145); TOTAL BILIRUBIN 0.2 mg/dL (<0.1-1.0); TOTAL PROTEIN 5.8 g/dL (6.4-8.2)
--- NOTE | 2019-10-13 06:29 | NUR ---
PT. PROGRESSING TOWARDS GOALS. UP TO BSC STAND BY ASSIST. VERY SMALL BM THIS SHIFT. BIPAP WORN THROUGHOUT WHILE ASLEEP. NS REMAINS INFUSING AT 100CC/HR. WILL CONTINUE TO MNITOR.
--- NOTE | 2019-10-13 07:00 | CON ---
[address] [address] CONSULTATION Name: ROZ SOMMER Room: [address] IN [facility].#: [id number] Admission: 10/10/19 Attend Phys: Fredy Salamanca MD Discharge: Date of : 60 Report #: [id number] THIS REPORT FOR: //name// cc: Kevin Medrano MD, Matthew W. MD ~ THIS REPORT FOR: //name// CC: Fredy Medrano DATE OF SERVICE: 10/12/2019 INDICATION FOR CONSULTATION: Dfnfg-hu-cowsroq hypercarbic respiratory failure/request for preprocedure evaluation prior to EGD and colonoscopy. HISTORY OF PRESENT ILLNESS: This is a 59-year-old female. The patient has a history of very severe COPD. The patient's FEV1 is noted to be only 0.8 liters. The patient is on long-term oxygen at home. The patient also does get a positive airway pressure device while asleep at home and is an active smoker. The patient is not on long-term prednisone. The patient has a normal left ventricular ejection fraction with mildly elevated pulmonary artery systolic pressure of 45 on her previous echocardiogram. The patient also does take medications for anxiety including a large dose of Ativan at 2 mg twice a day. The patient is now admitted. Yesterday, presentation was with a lower GI bleed. The patient has also had diffuse abdominal pain. The patient is not reported to have had nausea, vomiting or hematemesis. The patient does report shortness of breath. The patient also does have a dry cough as well. The patient is reporting these to be at baseline; however, as is described below. The patient's arterial blood gases are consistent with gilou-nz-oujxghd hypercarbic respiratory failure despite the fact that the patient was on BiPAP overnight. The patient does not report a runny nose or sore throat. There is no fever at this time. The patient does report that a couple of days ago, she recorded a temperature of 99 degrees Fahrenheit at home. She does not have body aches and pains at this time. There is no swelling of lower extremities. There is no calf pain. The patient does at time cough and she is leaning backwards and eating. The patient has had significant issues with anxiety in the past. The patient, however, did not describe anxiety at this time. She has also had significant heartburn in the past. The patient, however, did not describe heartburn at this time either. REVIEW OF SYSTEMS: I performed a detailed review of systems and I asked her over 10 questions for review of systems. The patient's review of systems is negative [place] [address] CONSULTATION Name: SOMMERROZ G Room: [address] IN .R.#: [id number] Admission: 10/10/19 Attend Phys: Fredy Salamanca MD Discharge: Date of : 60 Report #: [id number] PAST MEDICAL HISTORY: Chronic hypoxemic and hypercarbic respiratory failure, the patient's baseline arterial blood gas is showing a significant elevation in pCO2 above 60. The patient also is on long-term oxygen and she states that she uses a CPAP or BiPAP at home. It is not fully defined at this time as to which one of these 2 devices she uses at home. Previous echocardiogram shows a normal left ventricular ejection fraction, pulmonary artery systolic pressure has previously been in the range of 45, which is consistent with mild pulmonary hypertension; gastroesophageal reflux disease; hiatal hernia; anxiety; depression; long-term high dose benzodiazepine use for anxiety. 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 SOCIAL HISTORY: The patient is an active smoker and has had an extensive history of smoking in the past, also uses electronic cigarettes in addition to regular cigarettes, unable to quantify smoking history exactly at this time. The patient, however, states that she still smokes, also uses marijuana. No known history of heavy alcohol use. CURRENT MEDICATIONS: The list is in [facility] reviewed. HOME MEDICATIONS: The list also in [facility] reviewed. FAMILY HISTORY: There are several other family members that also have a history of COPD. PHYSICAL EXAMINATION: GENERAL: She is alert, awake and oriented. She does appear to be emaciated, body mass index is decreased to 20.5. The patient was drinking water as I was entering the room, she was leaning backwards and did cough with sips of water at this time. Overnight, the patient was on BiPAP. The patient had been taken off BiPAP at the time of my examination, was on 2 liters oxygen via nasal cannula. VITAL SIGNS: She is saturating in the mid 90s with a heart rate between 80 and 90 and a blood pressure of 132/75 and a respiratory rate of 15. She did not appear to be in any distress. She is afebrile with a temperature of 36.8 and she has been afebrile since admission. HEENT: Head is normocephalic and atraumatic. NECK: Does not show raised JVP, asymmetry, mass or lymph nodes. CHEST: Symmetrical expansion on inspection and palpation. On auscultation, expressions are prolonged. Breath sounds are significantly decreased, breath sounds are bilaterally equal. I do hear end-expiratory wheezes. HEART: Regular. There is no murmur. ABDOMEN: Soft. There is mild tenderness in the lower abdomen. EXTREMITIES: Lower extremities show no edema, no calf tenderness. SKIN: Dry and intact. NEUROLOGICAL: She did move all extremities [place] [address] CONSULTATION Name: ROZ SOMMER Room: [address] IN [facility]#: [id number] Admission: 10/10/19 Attend Phys: Fredy Salamanca MD Discharge: Date of : 60 Report #: [id number] spontaneously. There is no focal deficit identified. I did order a chest x-ray this morning and then reviewed the report as well as the films myself. There are changes consistent with COPD. There is a small radiopaque density at the right lung base. The patient's CT of the abdomen and pelvis report is reviewed. I reviewed the lower chest only films as well. LABORATORY DATA: The patient's arterial blood gas, which do show ktnqa-gr-mkcmdhz hypercarbic respiratory failure in [facility] reviewed. The patient's CBC, which do show anemia, repeated 3 times since admission reviewed. The patient's chemistries which do show a significant elevation in bicarbonate levels in [facility] reviewed. Coagulation studies and urinalysis in [facility] reviewed. ASSESSMENT AND PLAN: 1. Acute lower gastrointestinal bleed/the procedure evaluation for upper and lower GI endoscopy. The patient at this time does have bfkgf-nz-nmgybvw hypercarbic respiratory failure and therefore, she is significantly higher than average risk for performing any procedure under sedation. I only recommend proceeding to GI scopes tomorrow if the procedures are urgent. If the procedures are urgent, then I recommend endotracheally intubating the patient for the procedures while understanding that endotracheal intubation and mechanical ventilation is significantly higher than average risk for this patient. The patient has had a pneumothorax in the past and there would be a risk of precipitating pneumothorax again if positive airway pressure ventilation with an endotracheal tube is initiated again. Also, due to a very low FEV1, it may be higher than average risk of having difficulty in weaning the patient off the ventilator. If the procedures are not urgent, then we can optimize the patient's respiratory status for these procedures later this week; however, the patient still remains significantly higher than average risk for any procedure under sedation and may still require endotracheal intubation. Therefore, suggest evaluating risks versus benefits of GI scopes accordingly. 2. Mjooc-xq-pqjxeqv hypercarbic respiratory failure. The patient is on a BiPAP while asleep and as needed during the day. At this time, I would go ahead and switch her over to average volume assured pressure support and then follow response. The patient does use either a CPAP or BiPAP at home. In case the patient is on a CPAP, I would recommend in that case considering switching her over to either a BiPAP or Trilogy device upon discharge. 3. Chronic obstructive pulmonary disease exacerbation. There is decreased pH in the patient's arterial blood gases, in addition to elevated pCO2. This points towards an acute component to respiratory failure in addition to chronic. The patient currently is on Solu-Medrol as well as DuoNeb. I agree with this therapy. I very strongly recommend smoking cessation. The patient is a potential candidate for adding ferry terminal supervisor low dose prednisone therapy. 4. Pulmonary infiltrates. There is a small radiopaque density seen at the right lung base. I do identify a small infiltrate at the right lung base on the [address] [address] CONSULTATION Name: ROZ SOMMER Room: [address]#: [id number] Admission: 10/10/19 Attend Phys: Fredy Salamanca MD Discharge: Date of : 60 Report #: [id number] of the abdomen and pelvis performed 2 days ago. This, however, is not significantly different from the patient's previous CT performed in 2014 and therefore may represent chronic changes. Note, the patient has had a pneumothorax on the same side. The patient already is on Levaquin, which would cover the possibility of pneumonia if at all present. I do not feel that any additional therapy is indicated at this time. Note, however, that the patient does have a previous history of methicillin-resistant Staphylococcus aureus colonization. Therefore, in case, there is a significant deterioration of the patient's condition, I would in that case, consider adding MRSA coverage. 5. Anxiety/benzodiazepine use. The patient is on a large dose of Ativan in addition to other medications for anxiety. I do feel that the patient's benzodiazepine use is significantly contributing to her hypercarbic respiratory failure. Clinical correlation is advised if feasible and from a respiratory point of view, reduction in dose of lorazepam may be of benefit. 6. Past medical history of pneumothorax. This does make the patient high risk for performing endotracheal intubation as discussed above. 7. Past medical history of gastroesophageal reflux disease and hiatal hernia. 8. Past medical history of methicillin-resistant Staphylococcus aureus colonization. 9. Deep vein thrombosis prophylaxis. Obviously, we will hold off on subcutaneous Lovenox due to gastrointestinal bleeding until okay with the Gastroenterology service. I recommend sequential compression devices. I also would plan on early ambulation when feasible. The patient is critically ill at this time and remains in dwzju-nw-qachxun hypercarbic respiratory failure. Total time spent providing critical care to this patient today exceeds 40 minutes. <ELECTRONICALLY SIGNED> By: Joey Ortez MD 10/13/19 0700 [id number] Ortez MD /nt
[2019-10-13 07:56] LABS: BE 10.4 mmol/L (-2 to +3); PO2 95.3 mmHg (75.0-100.0); pH 7.388 (7.340-7.450)
[2019-10-13 07:58] LABS: PCO2 62.8 mmHg (35.0-45.0)
--- NOTE | 2019-10-13 08:00 | NUR ---
PT IS A/O X4,VSS,HYDROCHLORIC ACID OPERATOR IN PLACE.NO C/O PAIN.PT DOWNGRADED TO TELE STATUS.GI PHYSICIAN CONTACTED ABOUT EGD/COLON-NO ORDERS TO MOVE FORWARD WITH PROCEDURE AT THIS POINT.CLEAR LIQUID DIET ORDERED.MAG REPLACED.PT INFORMED OF PLAN OF CARE AND COMMUNICATES UNDERSTANDING.PT TO TRANSFER TO ROOM 224.REPORT GIVEN TO NURSE.ALL PERSONAL BELONGINGS PACKED AND TAKEN WITH PT.
--- NOTE | 2019-10-13 11:45 | NUR ---
PT TO ROOM 224 VIA WC. PT INSTRUCTED TO NOT GET OUT OF BED WITHOUT ASSIST. CALL LIGHT WITHIN REACH
--- NOTE | 2019-10-13 12:07 | NUR ---
ICU rounds: Tele status, moving to room 224. Colonoscopy today. Requiring 2-5L of oxygen. CM spoke with Pt's dtr via phone. Pt normally resides at home with her son. Independent. Per dtr, Pt has been smoking "alot," Pt has been rolling her cigarettes from the rashaad tray, family has refused to buy Pt any cigarettes. Pt wears home o2 through [employer]. Current with [facility] palliative care. Hx of [facility]. Following for dispo.
--- NOTE | 2019-10-13 14:51 | NUR ---
Pt is out of network, CM updated Pt's dtr, per Pt is not medically stable to be transferred per pulm. Following.
--- NOTE | 2019-10-13 16:10 | EKG ---
[place] [address] ELECTROCARDIOGRAM REPORT Name: ROZ SOMMER Herman Room: [address] ADM IN .R.#: [id number] Admission: 10/10/19 Attend Phys: Fredy Salamanca, Discharge: Date of : 60 Date of Service: 10/10/191932 Report #: [id number] THIS REPORT FOR: //name// [facility] ED Test Date: 2019-10-10 Test Time: 19:33:39 Pat Name: ROZ SOMMER Department: Room: [facility] Gender: F [employer] Laminator: AMAURI : 1960 Requested By: Matt Jacques Order Number: [id number] MD: Mitchell Jurado Measurements Intervals [place] Rate: 126 P: 79 CO: 108 QRS: 82 QRSD: 85 T: 61 QT: 304 QTc: 441 Interpretive Statements Sinus tachycardia Compared to ECG 06/30/2019 10:42:31 Atrial premature complex(es) no longer present T-wave abnormality no longer present Electronically Signed On 10-13-2019 16:08:24 CDT by Mitchell Jurado [email or web address] <ELECTRONICALLY SIGNED> By: Mitchell Jurado MD, [facility] 10/13/19 1608 32 32 Mitchell Jurado MD, [facility] /EPI
--- NOTE | 2019-10-13 16:36 | NUR ---
PT RESTING IN BED THROUGHOUT SHIFT. TO TELE UNIT THIS AFTERNOON VIA WC. PT TO BSC WITH STEADY GAIT BUT CALLS FOR ASSIST TO BR. NSR. PT ON O2@2L NC. HAS NOT NEEDED BIPAP THIS SHIFT. TOLERATED CLEAR LIQUID DIET. PLAN FOR POSSIBLE COLONOSCOPY LATER THIS WEEK
[2019-10-14] VITALS: BP 142/88
[2019-10-14 04:00] VITALS: BP 152/86
[2019-10-14 05:22] LABS: ABSOLUTE LYMPHOCYTES 0.4 thou/uL (0.8-5.3); ABSOLUTE MONOCYTES 0.2 thou/uL (0.0-1.2); HEMATOCRIT 23.1 % (37.0-47.0); HEMOGLOBIN 7.7 gm/dL (12.0-15.0); LYMPHOCYTES 5.6 %; MCH 29.3 pg (26.0-34.0); MCHC 33.2 g/dL (28.0-37.0); MCV 88.2 fL (80.0-100.0); MONOCYTES 2.3 %; NUCLEATED RBCS 0 /100WBC; PLATELET COUNT* 341 thou/uL (150-400); POLYS 92.1 %; RBC 2.62 mil/uL (4.20-5.00); RDW-CV 15.9 % (10.5-14.5); WBC 7.6 thou/uL (4.0-11.0)
--- NOTE | 2019-10-14 05:38 | NUR ---
PT IS ABLE TO COMMUNICATE HER NEEDS TO STAFF EFFECTIVELY. SHE HAS DENIED THE NEED FOR PAIN MEDICATION UP TO THIS TIME. SHE HAS BEEN WEARING HER BIPAP DURING THIS SHIFT UP TO THIS TIME; SHE HAS SWITCHED TO NASAL CANULA THIS AM SINCE SHE HAS A BLOOD GAS LATER ON NC.
[2019-10-14 05:40] LABS: CALCIUM 8.2 mg/dL (8.5-10.1); CREATININE 0.6 mg/dL (0.6-1.3); MAGNESIUM 1.7 mg/dL (1.8-2.4); POTASSIUM 4.1 mmol/L (3.5-5.1)
[2019-10-14 08:46] LABS: PO2 87.7 mmHg (75.0-100.0); pH 7.425 (7.340-7.450)
[2019-10-14 08:51] LABS: PCO2 55.9 mmHg (35.0-45.0)
--- NOTE | 2019-10-14 11:30 | NUR ---
PT.IS OUT OF NETWORK FOR THIS FACILITY WITH NO OUT OF NETWORK BENEFITS. AND ESTHER FEEL PT.IS STABLE FOR TRANSFER. CALLED HER INSURANCE AND PT.CAN GO TO [place],[facility], [facility] OR [facility]. DISCUSSED WITH PT. SHE CHOSE [place]. CONTACTED [employer] TRANSFER TEAM [phone]. FAXED REQUESTED INFORMATION TO HER. SHE WILL REVIEW WITH [facility] FOR MEDICAL ACCEPTANCE AND BED AVAILABILITY AND CALL CM BACK. CHART COPIED TO GO WITH PT. AMBULANCE MEDICAL NECESSITY FORM AND TRANSFER FORM STARTED.
[2019-10-14 11:56] VITALS: BP 147/93
[2019-10-14 15:50] VITALS: BP 142/92
--- NOTE | 2019-10-14 16:43 | NUR ---
PT.CHOSE TO TRY [facility] OR [facility] FOR [facility]SFER [facility] NOT SURE IF THEY WILL HAVE A ROOM FOR PTELLY. HAD TO BE REMINDED SHE WAS OUT OF NETWORK WITH NO OON BENEFITS THE REASON OF NEED TO TRANSFER AND KEPT ASKING WHY SHE WASNT TRANSFERRED ON SATURDAY. EXPLAINED AGAIN THAT THE DRCecelia DID NOT FEEL SHE WAS STABLE FOR TRANSFER UNTIL TODAY. CALLED [facility] AND [facility] AND SPOKE WITH THEIR DOS. SHE SAID THEY DID NOT HAVE A GI DRReymundoON STAFF FELIPE AND COULD NOT TELL ME IF [facility] SHE SAID SHE WOULD NEED TO GO TO [facility]. PT.WANTED TO STAY CLOSE POSSIBLE TO [place]. CM NOTIFIED [facility]ANS[facility] TO LOOK FOR PLACEMENT AT [facility]. PT.INFORMED.
[2019-10-14 20:05] VITALS: BP 159/89
--- NOTE | 2019-10-14 22:00 | NUR ---
RECEIVED CALL THIS EVENING FROM [facility] REGARDING PT BEING ABLE TO TRANSFER TO THEIR FACILITY FOR FURTHER WORK-UP WITH GI (INSURANCE ISSUES HAVE NECESSITATED THIS CHANGE IN FACILITIES). INFORMED THAT PT NEEDS NEGATIVE COVID-19 TEST RESULT DOCUMENTED BEFORE SHE WILL BE ALLOWED TO TRANSFER TO [facility]; TRANSFER TO [place] IS NOT POSSIBLE AT THIS TIME DUE TO LACK OF OPEN BEDS. PAGED AND ORDER RECEIVED TO [facility] PT FOR COVID-19 TEST; PT [facility]BED AND SAMPLE SENT TO LAB LAST NIGHT.
[2019-10-15] VITALS (7 sets, daily range): BP systolic 138–154; BP diastolic 77–99
[2019-10-15 05:16] LABS: ABSOLUTE LYMPHOCYTES 0.5 thou/uL (0.8-5.3); ABSOLUTE MONOCYTES 0.4 thou/uL (0.0-1.2); ABSOLUTE NEUTROPHILS 6.4 thou/uL (1.6-8.1); HEMATOCRIT 27.9 % (37.0-47.0); HEMOGLOBIN 9.1 gm/dL (12.0-15.0); LYMPHOCYTES 7.4 %; MCH 28.8 pg (26.0-34.0); MCHC 32.5 g/dL (28.0-37.0); MCV 88.6 fL (80.0-100.0); MONOCYTES 5.3 %; MPV 7.2 fl. (7.2-11.1); NUCLEATED RBCS 0 /100WBC; PLATELET COUNT* 395 thou/uL (150-400); POLYS 87.3 %; RBC 3.15 mil/uL (4.20-5.00); RDW-CV 16.1 % (10.5-14.5); WBC 7.4 thou/uL (4.0-11.0)
[2019-10-15 05:27] LABS: CALCIUM 9.2 mg/dL (8.5-10.1); CREATININE 0.8 mg/dL (0.6-1.3); POTASSIUM 4.1 mmol/L (3.5-5.1)
--- NOTE | 2019-10-15 08:02 | NUR ---
PT IS ABLE TO COMMUNICATE HER NEEDS TO STAFF EFFECTIVELY. SHE HAS DENIED THE NEED FOR PAIN MEDICATION UP TO THIS TIME. SHE HAS BEEN NPO SINCE MIDNIGHT FOR GI. POSSIBLE TRANSFER TO [place], PENDING COVID-19 TESTING RESULTS (SEE EARLIER RN NOTE), IN THE NEXT COUPLE OF DAYS. PT WEARING BIPAP OVERNIGHT WHILE SLEEPING; TOLERATING WELL.
--- NOTE | 2019-10-15 12:51 | NUR ---
UPDATED AT 0830 BY [facility]END[facility] TRANSFER TEAM THAT [facility] SHOULD BE ABLE TO ACCEPT PT.TODAY AFTER 1200. CM CALLED THEM AT THIS TIME TO TELL OF STATUS CHANGE TO MED/SURG LEVEL OF CARE. BRENDAN WILL CHECK WITH DENTONJEMAL AND CALL CM BACK.
--- NOTE | 2019-10-15 13:35 | CON ---
[address] [address] CONSULTATION Name: ROZ SOMMER Room: [address] IN .R.#: [id number] Admission: 10/10/19 Attend Phys: Fredy Salamanca MD Discharge: Date of : 60 Report #: [id number] THIS REPORT FOR: //name// cc: Kevin Medrano MD, Matthew W. MD ~ THIS REPORT FOR: //name// CC: Fredy Medrano MD DATE OF SERVICE: 10/11/2019 REFERRING PHYSICIAN: Fredy Salamanca MD REASON FOR CONSULTATION: Severe abdominal pain with bloody diarrhea. IMPRESSION: 1. Acute left lower quadrant pain with associated bleeding and abnormal CAT scan suggesting thickening of her sigmoid colon -- suspect ischemic colitis. 2. Abnormal CT scan suggestive of active bleeding within the sigmoid colon without the patient having any overt hematochezia at this time. 3. Severe chronic obstructive pulmonary disease, which is both steroid and oxygen dependent. 4. Chronic acid reflux with large hiatal hernia. RECOMMENDATIONS: 1. We will repeat some stat labs at this time to include CBC, CMP and blood and ABG due to the fact her CO2 is 45. 2. We will begin the patient on clear liquid diet at this time. 3. We will begin the patient on a bowel preparation today and through tomorrow and if okay with Pulmonary, we will proceed with upper and lower endoscopy as early as Saturday. 4. However, I am going to consult Pulmonary for clearance due to the severity of her COPD to see if she is a candidate for the same. I have discussed the plans with the patient as well and she is agreeable to the same. HISTORY OF PRESENT ILLNESS: The patient is a pleasant, but unfortunate 59-year-old white female with severe COPD, which is oxygen and steroid dependent who was admitted to the hospital with complaints of rather severe lower abdominal pain associated with nausea, vomiting, dark tarry stools and bright red bleeding. She has tendency towards constipation. She does have problem with chronic acid reflux for which she takes medications for the same in the form of omeprazole with fairly good response to the same. She denies dysphagia or odynophagia. She has not had any hematemesis or coffee[place] [address] CONSULTATION Name: ROZ SOMMER Room: [address]#: [id number] Admission: 10/10/19 Attend Phys: Fredy Salamanca MD Discharge: Date of : 60 Report #: [id number] has undergone endoscopic studies in the past, but she is not clear. She is somewhat there and answers some questions reliably, but is sometimes confused. She was seen through the Emergency Room, underwent CT scan, which suggested there was some thickening of her sigmoid colon and possible bleeding within the same. She is admitted to the hospital for further evaluation and treatment. ALLERGIES: TO PENICILLIN AND ASPIRIN. CURRENT MEDICATIONS: Include Advair, omeprazole, montelukast, Glucophage, calcium with vitamin D, Fosamax, Effexor, Neurontin, Nasacort, aspirin, prednisone 10 mg once daily, Wixela Inhub inhalers twice daily, Tylenol, Toprol, albuterol nebs and lorazepam. PAST MEDICAL HISTORY: Also remarkable for her severe COPD, which is oxygen and steroid dependent. She has had problems with SEASONAL ALLERGIES as well, chronic acid reflux, diabetes, anxiety, depression, some problem with peripheral neuropathy as well. She has had inguinal hernia repair in the remote past, tubal ligation in the remote past. She had Knutson's palsy in 2012. She has some issues with hyperlipidemia. She has also had history of pneumothoraces in the past. SOCIAL HISTORY: The patient continues to smoke 1/4 pack per day. Smokes marijuana as well. She denies any alcohol use. FAMILY HISTORY: Negative. PHYSICAL EXAMINATION: GENERAL: Revealed ill-appearing 59-year-old white female who appears much older than her stated age. CARDIOPULMONARY: Revealed a regular rate and rhythm. She was tachycardic. LUNGS: Reveal diminished breath sounds throughout. ABDOMEN: Soft. She was mildly tender in lower quadrants. No rebound or guarding noted. LABORATORY DATA: Her laboratory tests from the revealed a white count of 9.6, hemoglobin 8.6 and platelet count 350,000. On admission, her hemoglobin was 10.9. MCV is 90.2 and RDW is 15.5. Her normal hemoglobin runs in the 7-[address] since at least March of last year. Her sodium is 144, potassium is 4.3, chloride 103, bicarb is greater than 45, her total bilirubin is 0.2, alkaline phosphatase is 66, AST is 10, ALT is 15 and her albumin is only 2.9. Iron saturation in June of this year was only 7%, ferritin was not done. She received 1 unit packed red cells back in June of this year. Her CT scan of the abdomen and pelvis performed on 10/09 revealed the liver [facility] [address] [place] [address] CONSULTATION Name: ROZ SOMMER Room: [address] IN .R.#: [id number] Admission: 10/10/19 Attend Phys: Fredy Salamanca MD Discharge: Date of : 60 Report #: [id number] and gallbladder being normal. There was no bile duct dilation noted. Pancreas appears normal. Spleen is normal. No pathologically enlarged lymph nodes are noted. There was a moderate hiatal hernia. Small bowel was otherwise unremarkable. There is diverticular disease of the distal transverse to the sigmoid colon with mural thickening of the distal descending and proximal sigmoid colon with mild stranding. There is also high density material within the distal descending colon proximal to this area of mural thickening suggested possible source of active hemorrhage. There is no free fluid in the abdomen. DISCUSSION: At the present time, the patient has had some major bleeding. However, she needs to be evaluated by Pulmonary before we proceed with any endoscopic studies. We will hold off on that until we get Pulmonary's clearance. <ELECTRONICALLY SIGNED> By: Evans Sales DO 10/15/19 [id number] Sales DO /nt
--- NOTE | 2019-10-15 17:33 | NUR ---
[facility] STILL AT CAPAC[facility]. DISCUSSED WITH PT. SHE IS AGREEABLE TO GOING TO [facility]. CALLED [facility]HA/TRANSFER TEAM [facility] TO INFORM. SHE WILL CHECK ON BED AVAILABILITY AND CALL [phone] IF BED AVAILABLE AND ABLE TO ACCEPT.
[2019-10-15] MEDS ORDERED: METHYLPRED IVPB (20:47)
--- NOTE | 2019-10-15 23:31 | NUR ---
PT TRANSFERRED TO [facility] AT 21:57; TRANSPORTED BY [facility]. PT VSS AND A+OX4 AT TIME OF TRANSFER. NIGHT TIME MEDS GIVEN PRIOR TO TRANSFER.
== END 2019-10-15 21:57 | disposition short-term general hospital (02) | DRG 177 ==
LOC: M.ERS 18:49 → M.ICU 22:12 → M.TBA-ER 22:12 → M.2W 22:12 → M.ICU 10-11 16:10 → M.2W 10-13 12:19
PROVIDERS: Family Medicine; Internal Medicine; Internal Medicine Critical Care Medicine; Internal Medicine Gastroenterology; Pediatrics; ADMIT Internal Medicine
PROC: 5A09357 Assistance with Respiratory Ventilation, Less than 24 Consecutive Hours, Continuous Positive Airway Pressure (ICD-10-PCS; principal; 2019-10-11)
PROC: 5A09357 Assistance with Respiratory Ventilation, Less than 24 Consecutive Hours, Continuous Positive Airway Pressure (ICD-10-PCS; 2019-10-12)
PROC: 5A09357 Assistance with Respiratory Ventilation, Less than 24 Consecutive Hours, Continuous Positive Airway Pressure (ICD-10-PCS; 2019-10-13)
PROC: 5A09357 Assistance with Respiratory Ventilation, Less than 24 Consecutive Hours, Continuous Positive Airway Pressure (ICD-10-PCS; 2019-10-14)
DX: J69.0 Pneumonitis due to inhalation of food and vomit (principal); J96.21 Acute and chronic respiratory failure with hypoxia; J96.22 Acute and chronic respiratory failure with hypercapnia; K92.1 Melena; K57.92 Diverticulitis of intestine, part unspecified, without perforation or abscess without bleeding; G51.0 Bell's palsy; J43.9 Emphysema, unspecified; E78.00 Pure hypercholesterolemia, unspecified; F17.210 Nicotine dependence, cigarettes, uncomplicated; F12.90 Cannabis use, unspecified, uncomplicated; F41.9 Anxiety disorder, unspecified; I27.20 Pulmonary hypertension, unspecified; K21.9 Gastro-esophageal reflux disease without esophagitis; F32.9 Major depressive disorder, single episode, unspecified; K44.9 Diaphragmatic hernia without obstruction or gangrene; I10 Essential (primary) hypertension; R73.03 Prediabetes; M81.0 Age-related osteoporosis without current pathological fracture; F19.90 Other psychoactive substance use, unspecified, uncomplicated; Z90.710 Acquired absence of both cervix and uterus; Z99.81 Dependence on supplemental oxygen; Z79.899 Other long term (current) drug therapy; Z79.82 Long term (current) use of aspirin; Z79.51 Long term (current) use of inhaled steroids; Z93.0 Tracheostomy status; Z88.6 Allergy status to analgesic agent; Z88.0 Allergy status to penicillin; Z03.818 Encounter for observation for suspected exposure to other biological agents ruled out